=== PATIENT | male | born 1960 | race Caucasian/White ===

== ENCOUNTER 2019-11-11 11:55 | Outpatient (CLI) | payer OTHER, SELFPAY ==
--- NOTE | ~2019-11-11 | XR_ITS ---
XR chest 2V DATE: 11/11/2019 13:21 INDICATION: Preoperative testing. Ex-smoker. Severe osteoarthritis of left hip. TECHNIQUE: PA and lateral views COMPARISON: 08/18/2017 PA and lateral chest FINDINGS: Postoperative change including suture anchors at right humeral head and neck. Left glenohum eral arthroplasty. Status post lower anterior cervical spine surgical fusion. Degenerative spurring of the thoracic and lumbar spine. Normal heart size. No hilar or mediastinal enlargement. No pulmonary infiltrate or consolidation, pleural effusion or pulmonary vascular congestion or pneumo thorax. IMPRESSION: No active cardiopulmonary disease Reviewed, dictated and finalized at location B.
--- NOTE | 2019-11-11 12:55 | ECG_ITS ---
Measurements Intervals [place] Rate: 55 P: 66 OK: 143 QRS: -8 QRSD: 105 T: 50 QT: 404 QTc: 387 Interpretive Statements SINUS BRADYCARDIA WITH SINUS ARRHYTHMIA DELAYED PRECORDIAL R/S TRANSITION BASELINE ARTIFACT- I, II, AVR BORDERLINE ECG Electronically Signed On 11-11-2019 13:31:56 CDT by Daniel Encarnacion D.O.
[2019-11-11 13:26] LABS: Basophils Absolute Auto 0.1 K/mm3 (0.0-0.1); Basophils Percent Auto 0.7 % (0.2-1.2); Eosinophils Absolute Auto 0.2 K/mm3 (0-0.3); Eosinophils Percent Auto 2.7 % (0-4.4); Hematocrit 44.2 % (42.0-52.0); Hemoglobin 14.5 g/dL (14.0-18.0); Immature Granulocyte Absolute 0.03 K/mm3 (0.00-0.031); Immature Granulocyte Percent A 0.4 % (0-0.5); Lymphocytes Percent Auto 21.9 % (18.3-44.2); Mean Corpuscular HGB Conc 32.8 g/dl (32-36); Mean Corpuscular Volume 85.3 fl (80-100); Mean Platelet Volume 8.9 fl (7.4-10.4); Monocytes Absolute Auto 0.5 K/mm3 (0.1-0.6); Monocytes Percent Auto 6.1 % (2.6-8.5); Neutrophils Percent Auto 68.2 % (45.5-73.1); Platelet Count Result 276 k/mm3 (150-375); Red Blood Count 5.18 M/mm3 (4.6-6.20); Red Cell Distribution Width 13.1 % (11.5-14.5); White Blood Count 7.3 K/mm3 (4.5-10.0)
[2019-11-11 13:38] LABS: Albumin Level 4.5 g/dL (3.5-5.1); Blood Urea Nitrogen 25 mg/dL (9-20); Calcium 9.7 mg/dL (8.4-10.2); Carbon Dioxide 29 mmol/L (22-30); Chloride 103 mmol/L (98-107); Estimated Glomerular Filt Rate > 60; Glucose 89 mg/dL (75-110); Potassium 4.2 mmol/L (3.4-5.0); Sodium 141 mmol/L (137-145)
[2019-11-11 13:39] LABS: Urine Cotinine NEGATIVE
[2019-11-11 13:41] LABS: Hemoglobin A1C 5.7 % (<5.7)
== END 2019-11-11 11:56 | disposition home or self-care (01) ==
LOC: ANHSURGERY 12:00
PROVIDERS: PCP Family Medicine; Visit Provider Orthopaedic Surgery
DX: Z01.818 Encounter for other preprocedural examination (principal); M16.9 Osteoarthritis of hip, unspecified
CPT/HCPCS: 36415; 71046; 80048; 80307; 82040; 83036; 85025; 87070; 93005

== ENCOUNTER → 2019-12-02 11:39 | Outpatient (CLI) | payer OTHER, SELFPAY ==
--- NOTE | ~2019-12-02 | XR_ITS ---
EXAMINATION: XR_CERV2-3V_CR EXAM DATE: 12/02/2019 12:12 INDICATION: Cervical disc disorder. Myelopathy. TECHNIQUE: Cervical spine frontal, lateral, lateral swimmers, submental vertex odontoid projections. There is no prior study for comparison. FINDINGS: There is mild to moderate cervical levoscoliosis. There is cervical fusion C4-C6. There is moderate disc disease C6-7 and C7-T1. There is severe right, moderate left sided midcervical arthrop athy. There are shoulder replacement. The vertebral bodies are aligned in the AP dimension. The odont oid process is intact. The lateral masses of C1 line up with C2. Lung apices unremarkable. IMPRESSION: 1. Intact fusion C4-6. 2. Mild to moderate levoscoliosis. 3. Advanced right-sided, moderate left-sided arthropathy. Reviewed, dictated and finalized at location B.
== END ==
PROVIDERS: PCP Family Medicine
DX: M50.020 Cervical disc disorder with myelopathy, mid-cervical region, unspecified level (principal); M41.82 Other forms of scoliosis, cervical region; M12.88 Other specific arthropathies, not elsewhere classified, other specified site; Z98.1 Arthrodesis status
CPT/HCPCS: 72040

== ENCOUNTER 2020-01-12 11:58 | Outpatient (RCR) | payer OTHER, SELFPAY ==
[2020-01-12 12:19] LABS: Hematocrit 33.2 % (42.0-52.0); Hemoglobin 10.9 g/dL (14.0-18.0); Mean Corpuscular HGB Conc 32.8 g/dl (32-36); Mean Corpuscular Hemoglobin 28.5 pg (26-34); Mean Corpuscular Volume 86.7 fl (80-100); Mean Platelet Volume 8.5 fl (7.4-10.4); Platelet Count Result 322 k/mm3 (150-375); Red Blood Count 3.83 M/mm3 (4.6-6.20); Red Cell Distribution Width 12.7 % (11.5-14.5); White Blood Count 7.8 K/mm3 (4.5-10.0)
== END 2020-04-11 23:59 | disposition home or self-care (01) ==
LOC: ANHLAB 11:58
PROVIDERS: PCP Family Medicine; Visit Provider Orthopaedic Surgery
DX: D64.9 Anemia, unspecified (principal)
CPT/HCPCS: 36415; 85027

== ENCOUNTER 2020-02-17 10:26 | Outpatient (CLI) | payer OTHER, SELFPAY ==
--- NOTE | ~2020-02-17 | US_ITS ---
EXAMINATION: US thyroid DATE: 02/17/2020 11:03 INDICATION: Nontoxic multinodular goiter. TECHNIQUE: Multiple ultrasound images of the thyroid were obtained. COMPARISON: None. FINDINGS: The right thyroid lobe measures 4.0 x 1.9 x 1.6 cm. The left thyroid lobe measures 5.1 x 2.3 x 2.8 c m. There is a heterogeneous iso to slightly hypoechoic, solid wider than tall left thyroid mass with smooth margins measuring 4.1 x 2.1 x 2.2 cm (TI-RADS 4, moderately suspicious , FNA if >=1.5 cm, kimber ual followup is >1 cm). There is normal echotexture, echogenicity and vascular flow throughout the r emainder of the thyroid gland. IMPRESSION: 1. 4.1 cm right thyroid mass for which ultrasound-guided biopsy would be recommended. Reviewed, dictated and finalized at location A. IMPRESSION: 1. 4.1 cm right thyroid mass for which ultrasound-guided biopsy would be recomm ended.
--- NOTE | ~2020-02-17 | XR_ITS ---
EXAMINATION: XR foot LT min 3V DATE: 02/17/2020 11:08 INDICATION: Left foot pain, possible foreign body TECHNIQUE: Dorsoplantar, lateral, and 2 oblique views of the left foot were obtained. COMPARISON: None. FINDINGS: There is a triangular foreign body measuring 1.6 cm in greatest dimension which projects in the plantar soft tissues of the medial foot near the medial cuneiform. There is no fracture. Mild os teoarthritis is noted in multiple interphalangeal joints as well as in the midfoot. A plantar calcane al enthesophyte is noted. IMPRESSION: 1. Triangular radiopaque foreign body in the plantar soft tissues of the medial foot near the medial cuneiform. Reviewed, dictated and finalized at location A.
== END 2020-02-17 10:27 | disposition home or self-care (01) ==
PROVIDERS: PCP Family Medicine; Referring Provider Nurse Practitioner Family; Visit Provider Physician Assistant Medical
DX: M79.5 Residual foreign body in soft tissue (principal); E04.2 Nontoxic multinodular goiter
CPT/HCPCS: 73630; 76536

== ENCOUNTER 2020-03-02 07:38 | Outpatient (CLI) | payer OTHER, SELFPAY ==
[2020-03-02 18:37] LABS: SARS-CoV-2 RNA PCR Negative
== END 2020-03-02 07:39 | disposition home or self-care (01) ==
LOC: ANHCOVIDDT 07:38
PROVIDERS: PCP Family Medicine; Visit Provider Podiatrist Foot & Ankle Surgery
DX: Z01.812 Encounter for preprocedural laboratory examination (principal); Z11.59 Encounter for screening for other viral diseases
CPT/HCPCS: 87635; C9803; U0003

== ENCOUNTER 2020-03-03 02:35 | Day surgery (SDC) | payer OTHER, SELFPAY ==
[2020-03-02 08:53] VITALS: BMI 27.3
[2020-03-03] VITALS (7 sets, daily range): BP systolic 124–164; BP diastolic 69–99; PULSE 50–84; RESP 11–18; TEMP 35.8–36.3; O2SAT 99–100
--- NOTE | ~2020-03-03 | XR_ITS ---
EXAMINATION: XR surgery orthopedic DATE: 03/03/2020 10:35 INDICATION: Foreign body removal from the left foot TECHNIQUE: 2 oblique fluoroscopic images of the left midfoot were obtained prior to and following rem oval of a reported shard of glass by Dr. Fowler. Radiologist was not present for the imaging or pro cedure. The amount of fluoroscopy time used during this procedure was 3.8 minutes. COMPARISON: 02/17/2020 FINDINGS: Initial image demonstrates the tip of a metallic probe in relatively close proximity to the previousl y seen triangular foreign body consistent with a shard of glass located in the soft tissues plantar/m edial to the medial cuneiform. The foreign body is no longer visualized on the post procedure image. IMPRESSION: 1. No residual radiopaque foreign body post removal of a reported glass fragment from the left midfoo t. See procedure note for further detail. Reviewed, dictated and finalized at location A. IMPRESSION: 1. No residual radiopaque foreign body post removal of a reported glass fragmen t from the left midfoot. See procedure note for further detail.
--- NOTE | 2020-03-03 07:20 | WPDHPUPDATE1 ---
History and Physical Update Update Date/Time: 03/03/20 07:20 History and Physical has been reviewed, including an updated exam of the patient. There are NO changes in the patient's condition. Risks, benefits, and alternatives have been discussed and questions answered. Patient agrees to proceed with procedure.
[2020-03-03] MEDS: LACTATED RINGERS 1,000 ML 30 ML IV CONT (08:15)
--- NOTE | 2020-03-03 08:50 | WPDANESEPPF ---
Anes - Initial Pre Proc Eval Procedure: Operation Date: 03/03/20 09:30 Proposed Procedures p Removal Foreign Body Of Left Foot - Juan Fowler JR, MD Date/Time: 03/03/20 08:50 Surgeon: Juan Fowler JR, MD Pre Op Diagnosis: Painful Foreign Body Left Foot Patient Data Age: 60 Gender: M Height: 5 ft 9 in Weight: 84.1 kg Last Vital Signs Temp 35.8 C L 03/03/20 08:15 Pulse 58 L 03/03/20 08:15 Resp 18 03/03/20 08:15 BP 140/83 03/03/20 08:15 Pulse Ox 99 03/03/20 08:15 Allergies Allergy/AdvReac Type Severity Reaction Status Date / Time atorvastatin AdvReac MUSCLE Verified 03/03/20 08:07 CRAMPS Home Medications Medication Instructions Recorded Confirmed Type ascorbic acid (vitamin C) [Vitamin 1 g PO DAILY 11/11/19 03/03/20 History C] aspirin 81 mg PO DAILY 11/11/19 03/03/20 History omega 9-jao-mvr-fish oil [Fish Oil] 1 cap PO DAILY 11/11/19 03/03/20 History meloxicam 15 mg tablet 15 mg PO DAILY #90 tablet 02/18/20 03/03/20 Rx cetirizine 10 mg PO DAILY 03/02/20 03/03/20 History tizanidine 4 mg PO QPM 03/02/20 03/03/20 History Patient hx anesthesia problems: none Family hx anesthesia problems: none PMFSH Past Medical History Medical History Hip osteoarthritis Screening for prostate cancer Surgical History Surgical History H/O arthroscopy of shoulder History of fusion of cervical spine History of total hip replacement Family History Family History Grandparent Cerebrovascular accident Sibling Family history of diabetes mellitus in first degree relative Social History Social History Smoking packs per day: 3 Smoking cigarettes per day: 60.0 Years smoked: 12 Smoking pack-years: 36.00 Smoking status: Former smoker Tobacco type: cigarettes Additional smoking assessment comments: QUIT 1988 Alcohol intake: former Alcohol use details: HISTORY ALCOHOL ABUSE Substance use: former Other substance usage details: STATES USED EVERYTHING Last use: 25 YEARS AGO Gender identity (if verbalized by the patient): Male Spiritual care concerns: No Anes - Eval Final PreProcedure Day of Procedure 03/03/20 08:50 Patient weight: overweight Heart: regular rate and rhythm Lungs: clear to auscultation Airway: Mallampati scale class II Neurological: alert and oriented Last oral intake: >/= 8 hours ASA classification: III Emergent: no Anesthetic plan: proceed Anesthesia type and monitoring: general LMA and standard monitoring Informed Consent: The patient's anesthetic plan and its attendant risks and benefits were discussed with the patient/family/POA. Questions were solicited and answers provided to the satisfaction of the patient/family/POA.
[2020-03-03] MEDS: ceFAZolin 2 GM/D5W 50 ML 2 GM/50 ML BAG IVPB (09:24)
--- NOTE | 2020-03-03 11:02 | PM.OP ---
Procedure Note - Brief Procedure Note - Brief Date of procedure: 03/03/20 Pre-op diagnosis: Painful Foreign Body Left Foot Post-op diagnosis: same Procedure performed: Removal of deep foreign body left foot Anesthesia: GLMA Surgeon: Juan Fowler JR, DPM Estimated blood loss (mL): 1 Complications: No immediate complications Condition: stable Disposition: same day
--- NOTE | 2020-03-03 17:57 | OP_ITS ---
DATE OF PROCEDURE: 03/03/2020 PREOPERATIVE DIAGNOSIS: Painful deep foreign body, left foot. POSTOPERATIVE DIAGNOSIS: Painful deep foreign body, left foot. PROCEDURE: Removal of deep foreign body, left foot. PATHOLOGY: None. ANESTHESIA: MAC with local. HEMOSTASIS: Pneumatic ankle tourniquet at 250 mmHg. ESTIMATED BLOOD LOSS: Minimal. MATERIALS USED: 4-0 Vicryl and 4-0 Monocryl. INJECTABLES: 20 mL of a 1:1 mixture of 2% lidocaine plain and 0.5% Marcaine plain injected preoperatively. COMPLICATIONS: None. PROCEDURE IN DETAIL: Under mild sedation, the patient was brought into the operating room and placed on the operating table in supine position. Pneumatic ankle tourniquet was placed about the patient's left ankle. Following IV anesthesia, local anesthesia was obtained about the left foot utilizing a total of 20 mL of 1:1 mixture of 2% lidocaine plain and 0.5% Marcaine plain. The foot was then scrubbed, prepped, and draped in the usual aseptic manner. An Esmarch bandage was then used to exsanguinate the patient's left foot and the pneumatic ankle tourniquet was then inflated. Surgery began in the following manner. Attention was directed to the plantar medial aspect of the left midfoot near the navicular cuneiform joint. The incision was continued deep down through the subcutaneous tissues using sharp and blunt dissection. The incision was approximately 4 cm in length. At this point, the muscle belly to the abductor hallucis and flexor digitorum brevis muscle belly were identified and dissected plantarly. At this point, utilizing live fluoroscopy, the large segment of glass was visualized and careful dissection of the muscle belly was performed and retracted inferiorly exposing the large glass foreign body. This was removed in toto utilizing a curved Mosquito hemostat. It was placed on the back table and noted to measure, one of the legs was 1.5 cm. The 2nd leg was approximately 8 mm. It was triangular-shaped. A fluoroscopic x-ray was taken of the left foot showing adequate removal of the entire foreign body. The wound site was flushed with copious amounts of sterile saline. The subcutaneous structures were reapproximated and coapted utilizing 4-0 Vicryl. Next the skin was reapproximated and coapted utilizing 4-0 Monocryl, utilizing running subcuticular suture fashion technique. Upon completion of the procedure, the incision was dressed with Adaptic, 4x4s, Kerlix, and Coban. The pneumatic ankle tourniquet was then deflated and a prompt hyperemic response noted to all digits of the left foot. The patient did very well with the procedure and anesthesia. He was transferred to the recovery room with vital signs stable and vascular status intact to all toes of the left foot. Following a period of postoperative monitoring, the patient will be discharged home on the following written and oral postoperative instructions: 1. Keep the dressing clean, dry, and intact. 2. Avoid excessive ambulation. 3. Ice and elevate the left foot when at rest. 4. Wear surgical shoe at all times with ambulating. 5. Contact Dr. Fowler for all postop care and if any problems arise. 6. Prescriptions were written for Percocet 5/325, dispensed 30 to be taken 1 p.o. q.4-6 hours as needed for severe pain, Duricef 1000 mg was also prescribed to be taken 1 p.o. q.24 hours for 10 days to prevent infection. Miguel Angel I MT: Paz
== END 2020-03-03 12:15 | disposition home or self-care (01) ==
PROVIDERS: PCP Family Medicine; Visit Provider Podiatrist Foot & Ankle Surgery
PROC: (CPT 28192; principal; 2020-03-03 09:30)
DX: M79.5 Residual foreign body in soft tissue (principal); M79.672 Pain in left foot; Z87.891 Personal history of nicotine dependence; Z79.82 Long term (current) use of aspirin
CPT/HCPCS: 28192; J0690; J2250; J2405; J2704; J3010; J7120

== ENCOUNTER 2020-03-08 12:58 | Outpatient (CLI) | payer OTHER, SELFPAY ==
--- NOTE | ~2020-03-08 | US_ITS ---
EXAMINATION: US FNA w image guidance DATE: 03/08/2020 14:02 INDICATION: Left thyroid nodule TECHNIQUE: A time-out was performed to verify the patient's name, date of , and procedure to be performed . The procedure and its benefits and risks were discussed with the patient. Risks specifically discus sed included bleeding and infection. The patient understood the risks and agreed to proceed. The neck was prepped and draped in the usual sterile manner. 3 mL 1% lidocaine was used for local anesthesia . 6 passes were made with a 25G needle into the lesion. Appropriate needle location was documented with continuous sonographic guidance. The specimens were passed to the special procedure technologist in the room. A sterile bandage was applied. There were no immediate complications. FINDINGS: Grayscale ultrasound images demonstrate biopsy needles advanced into a 3.8 x 2.9 x 1.6 cm heterogeneo us solid hypoechoic mass with microcalcifications in the left thyroid lobe. IMPRESSION: 1. Successful ultrasound-guided fine needle aspiration of . Reviewed, dictated and finalized at location A.
== END 2020-03-08 12:59 | disposition home or self-care (01) ==
PROVIDERS: PCP Family Medicine; Visit Provider Physician Assistant Medical
DX: E07.9 Disorder of thyroid, unspecified (principal)
CPT/HCPCS: 10005; 88173; 88305

== ENCOUNTER 2020-09-25 07:31 | Outpatient (CLI) | payer OTHER, SELFPAY ==
--- NOTE | ~2020-09-25 | US_ITS ---
US abdomen complete DATE: 09/25/2020 08:11 INDICATION: Right lower quadrant abdominal pain, flank pain TECHNIQUE: Real-time imaging of the abdomen, Doppler analysis COMPARISON: None FINDINGS: Hepatic steatosis. Hepatomegaly. There is normal hepatopedal portal venous flow direction. No hepatic or pancreatic space-occupying mass lesion is evident. No gallstones are evident. Gallbladder wall thickness is within upper limits of normal. Negative sono graphic Robin's sign. The common bile duct measures 3.7 mm, normal. Right kidney measures approximately 10 cm length. The left kidney measures similar length. No space-o ccupying mass lesion or hydronephrosis of either kidney is evident. Spleen measures up to 11.7 cm, within upper normal range. Normal caliber of the abdominal aorta. The inferior vena cava is unremarkable. IMPRESSION: Hepatomegaly and hepatic steatosis Reviewed, dictated and finalized at Location A. Reviewed, dictated and finalized at location A. IER COURTESY BOOTH
== END 2020-09-25 07:32 | disposition home or self-care (01) ==
PROVIDERS: Family Provider Family Medicine; PCP Family Medicine; Visit Provider Nurse Practitioner Family
DX: R10.31 Right lower quadrant pain (principal); K76.0 Fatty (change of) liver, not elsewhere classified
CPT/HCPCS: 76700

== ENCOUNTER 2020-10-25 08:05 | Outpatient (CLI) | payer OTHER, SELFPAY ==
--- NOTE | ~2020-10-25 | XR_ITS ---
EXAMINATION: XR foot RT min 3V EXAM DATE: 10/25/2020 08:20 INDICATION: No known recent injury provided at this time. Pain of the right foot. TECHNIQUE: Right foot dorsoplantar, lateral and oblique projections obtained and reviewed. Compariso n is made to prior examination from contralateral foot 02/17/2020. FINDINGS: Right metatarsal bones unremarkable. There is severe osteoarthritis at the Lisfranc joint , 2nd and 3rd tarsometatarsal articulations, could be primary osteoarthritis or secondary posttraumat ic osteoarthritis. There is mild right 1st metatarsophalangeal and interphalangeal primary osteoarthr itis. Some lateral subluxation at the 1st interphalangeal joint. There are no bony erosions identified. No periosteal reaction or band of sclerosis to suggest subacute stress fracture. There are no acute frac tures or dislocations identified. There is no subcutaneous gas. The soft tissue is unremarkable. There are no radiopaque foreign bodies. Small inferior calcaneal spur IMPRESSION: 1. Severe right 2nd, 3rd tarsometatarsal joint osteoarthritis. 2. Otherwise mild degenerative changes. Reviewed, dictated and finalized at location A. [employer] WORK[employer]
== END 2020-10-25 08:06 | disposition home or self-care (01) ==
LOC: ANHIMG 08:10
PROVIDERS: PCP Family Medicine; Visit Provider Nurse Practitioner Family
DX: G89.29 Other chronic pain (principal); M79.671 Pain in right foot; M19.071 Primary osteoarthritis, right ankle and foot
CPT/HCPCS: 73630

== ENCOUNTER 2022-01-16 05:11 | Emergency (ER) | payer OTHER, SELFPAY ==
[2022-01-16] VITALS (9 sets, daily range): BP systolic 165–182; BP diastolic 83–85; PULSE 71–144; RESP 16–20; TEMP 35.8; O2SAT 91–100
--- NOTE | ~2022-01-16 | CT_ITS ---
EXAMINATION: CT abdomen pelvis w con DATE: 01/16/2022 06:14 INDICATION: Right lower quadrant abdominal pain. TECHNIQUE: Computed tomography (CT) of the abdomen and pelvis was performed with 75 mL Omnipaque 300 intravenous contrast. Automated exposure control and iterative reconstruction technique were employed . The dose-length product was 767.87 mGy-cm. COMPARISON: None. FINDINGS: The visualized portions of the lung bases demonstrate mild atelectasis. Calcified left lung nodules are consistent with old granulomatous disease. No pleural effusion. The heart size is normal . No pericardial effusion. There is a small sliding hiatal hernia. Calcifications in the liver and sp sheryl are consistent with old granulomatous disease. The gallbladder, pancreas, adrenal glands, and le ft kidney are normal. There is a delayed right-sided contrast nephrogram. There is mild right hydrone phrosis and proximal hydroureter. There is a 4 mm stone in proximal right ureter. There is diverticul osis of the colon without evidence of diverticulitis. There are no dilated loops of bowel. The append ix is normal. There are no pathologically enlarged lymph nodes. There is no free intraperitoneal flui d. There is a total left hip arthroplasty. There is severe lower lumbar spondylosis. IMPRESSION: 1. 4 mm stone in proximal right ureter with mild right hydronephrosis and proximal hydroureter. 2. Small sliding hiatal hernia. Reviewed, dictated and finalized at location A. IMPRESSION: 1. 4 mm stone in proximal right ureter with mild right hydronephrosis and proxi mal hydroureter. 2. Small sliding hiatal hernia.
[2022-01-16] MEDS: SODIUM CHLORIDE 0.9% IV 1,000 ML 999 ML IV CONT (05:34)
[2022-01-16 05:42] LABS: Basophils Absolute Auto 0.1 K/mm3 (0.0-0.1); Basophils Percent Auto 0.6 % (0.2-1.2); Eosinophils Absolute Auto 0.1 K/mm3 (0-0.3); Eosinophils Percent Auto 1.1 % (0-4.4); Hematocrit 47.5 % (42.0-52.0); Hemoglobin 15.5 g/dL (14.0-18.0); Immature Granulocyte Absolute 0.09 K/mm3 (0.00-0.031); Immature Granulocyte Percent A 0.8 % (0-0.5); Lymphocytes Absolute Auto 2.02 K/mm3 (0.9-3.2); Lymphocytes Percent Auto 17.5 % (18.3-44.2); Mean Corpuscular HGB Conc 32.6 g/dl (32-36); Mean Corpuscular Hemoglobin 28.8 pg (26-34); Mean Corpuscular Volume 88.3 fl (80-100); Mean Platelet Volume 8.8 fl (7.4-10.4); Monocytes Absolute Auto 0.8 K/mm3 (0.1-0.6); Monocytes Percent Auto 6.5 % (2.6-8.5); Neutrophils Absolute Auto 8.5 K/mm3 (1.3-6.7); Neutrophils Percent Auto 73.5 % (45.5-73.1); Platelet Count Result 216 k/mm3 (150-375); Red Blood Count 5.38 M/mm3 (4.6-6.20); Red Cell Distribution Width 13.1 % (11.5-14.5); White Blood Count 11.5 K/mm3 (4.5-10.0)
--- NOTE | 2022-01-16 05:44 | ED.ABDPAIN ---
HPI - Abdominal Pain General Chief Complaint: Abdominal Pain Stated Complaint: right flank pain Time Seen by Provider: 01/16/22 05:36 History of Present Illness HPI narrative: Patient is a 62-year-old male complaining of right flank pain, 9 out of 10, sharp, nonradiating accompanied by nausea started this morning. Patient denies any chest pain, shortness of breath, abdominal pain, vomiting, diarrhea, urinary symptoms, fever or chills. Related Data Home Medications Medication Instructions Recorded Confirmed ascorbic acid (vitamin C) 1,000 mg 1 g PO DAILY 11/11/19 03/19/21 tablet (Vitamin C) aspirin 81 mg chewable tablet 81 mg PO DAILY 11/11/19 03/19/21 omega 3-ryl-vpq-fish oil 1,000 mg 1 cap PO DAILY 11/11/19 03/19/21 (120 mg-180 mg) capsule (Fish Oil) Allergies Allergy/AdvReac Type Severity Reaction Status Date / Time atorvastatin AdvReac MUSCLE Verified 01/16/22 05:16 CRAMPS Review of Systems Review of Systems: All systems reviewed & are unremarkable except as noted in HPI and below Constitutional: Constitutional: Denies body ache(s), Denies chills, Denies excessive sweating, Denies fatigue, Denies fever(s), Denies headache(s), Denies lethargy, Denies malaise, Denies weakness and Denies weight loss Eyes: Eyes: Denies blurry vision, Denies change in vision and Denies loss of vision ENT: Denies dizziness, Denies ear discharge, Denies headache(s), Denies lip swelling, Denies epistaxis, Denies nasal congestion, Denies neck pain, Denies throat swelling and Denies tongue swelling Cardiovascular: Cardiovascular: Denies chest pain, Denies chest pain at rest, Denies chest pain with activity, Denies diaphoresis, Denies rapid heart rate, Denies edema, Denies irregular heart rhythm, Denies lightheadedness, Denies palpitations, Denies dyspnea and Denies dyspnea on exertion Respiratory: Respiratory: Denies chest congestion, Denies cough, Denies hemoptysis, Denies dyspnea and Denies dyspnea on exertion Gastrointestinal: Gastrointestinal: Denies abdominal pain, Denies melena, Denies hematochezia, Denies diarrhea, Denies vomiting and Denies hematemesis Musculoskeletal: Musculoskeletal: Denies abnormal gait, Denies deformity, Denies joint swelling, Denies limited range of motion, Denies neck pain and Denies numbness Neurologic: Denies Abnormal speech present, Denies abnormal gait, Denies confusion, Denies dizziness, Denies headache(s), Denies focal weakness, Denies loss of vision, Denies numbness, Denies Other visual disturbances, Denies Sensory deficit (Neuro) and Denies weakness Psychiatric: Psychiatric: Denies confusion, Denies depression, Denies auditory hallucinations, Denies homicidal ideation and Denies suicidal ideation Endocrine: Endocrine: Denies cold intolerance, Denies excessive sweating, Denies fatigue, Denies heat intolerance and Denies palpitations Hematologic/Lymphatic: Hematologic/Lymphatic: Denies easy bleeding and Denies easy bruising Allergic/Immunologic: Allergic/Immunologic: Denies lip swelling, Denies throat swelling and Denies tongue swelling PMFSH Past Medical History Medical History BMI 26.0-26.9,adult BMI 27.0-27.9,adult COVID-19 Hip osteoarthritis Screening for prostate cancer Trigger finger of right hand Surgical History Surgical History H/O arthroscopy of shoulder History of fusion of cervical spine History of total hip replacement Family History Family History Grandparent Cerebrovascular accident Sibling Family history of diabetes mellitus in first degree relative Father No problems noted. Mother Cerebrovascular accident Social History Social History Smoking packs per day: 3 Smoking cigarettes per day: 60.0 Years smoked: 12
[2022-01-16 05:50] LABS: Alanine Aminotransferase 34 U/L (6-50); Albumin Level 4.7 g/dL (3.5-5.1); Alkaline Phosphatase 74 U/L (38-126); Anion Gap 11 mmol/L (8-16); Aspartate Amino Transferase 41 U/L (17-59); Blood Urea Nitrogen 24 mg/dL (9-20); Calcium 9.7 mg/dL (8.4-10.2); Carbon Dioxide 25 mmol/L (22-30); Chloride 105 mmol/L (98-107); Estimated CRCL calculation 63 ml/min; Estimated Glomerular Filt Rate > 60; Glucose 149 mg/dL (65-110); Lactic Acid Reflex 1.8 mmol/L (0.7-2.0); Lipase 196 U/L (23-300); Sodium 141 mmol/L (137-145)
[2022-01-16] MEDS: HYDROmorphone HCL INJ (*CRX) 1 MG/ML SYR 0.5 MG IV PUSH ×2 (05:50→06:56)
[2022-01-16] MEDS: PROMETHAZINE HCL 25 MG/ML AMPUL 12.5 MG IV PUSH (05:50)
--- NOTE | 2022-01-16 07:06 | PC.NURSE ---
REPORT TO BOBBY SKAGGS
[2022-01-16 07:15] LABS: Appearance Urine Clear (Clear); Bilirubin Urine Negative (Negative); Blood Urine Trace-lysed (Negative); Color Urine Yellow (Yellow); Glucose Urine UA Negative (Negative); Ketones Urine Negative (Negative); Leukocyte Esterase Ur Negative LEU/UL (Negative); Nitrate Urine Negative (Negative); Protein Urine Negative (Negative); Specific Grav Ur 1.025 (1.001-1.035); Urobilinogen Urine 0.2 mg/dL (<2.0)
[2022-01-16 07:20] LABS: Add Urine Microscopic? YES; Mucus Urine Rare /lpf; WBC Urine 0-3 /hpf
== END 2022-01-16 07:52 | disposition home or self-care (01) ==
PROVIDERS: Emergency Provider Emergency Medicine; PCP Family Medicine
DX: N13.2 Hydronephrosis with renal and ureteral calculous obstruction (principal); M16.10 Unilateral primary osteoarthritis, unspecified hip; Z86.16 Personal history of COVID-19; Z98.1 Arthrodesis status; Z96.649 Presence of unspecified artificial hip joint; Z87.891 Personal history of nicotine dependence; K44.9 Diaphragmatic hernia without obstruction or gangrene
CPT/HCPCS: 36415; 74177; 80053; 81001; 83605; 83690; 85025; 96361; 96374; 96375; 96376; 99284; J1170; J2550; J7030; Q9967

== ENCOUNTER → 2022-07-17 07:38 | Outpatient (CLI) | payer OTHER, SELFPAY ==
--- NOTE | ~2022-07-17 | MR_ITS ---
EXAMINATION: MR knee RT wo con DATE: 07/17/2022 08:18 INDICATION: Right knee pain TECHNIQUE: Magnetic resonance imaging (MRI) of the right knee was performed without intravenous contr ast. Sequences included coronal PD-weighted FSE, coronal PD-weighted FS FSE, sagittal T2-weighted FS E, sagittal PD-weighted FS FSE and axial PD weighted fat saturated FSE. COMPARISON: None. FINDINGS: Medial compartment: Complex tear of the body and posterior horn of the medial meniscus. No partial-thickness cartilage lo ss with chondral surface regularity along the posterior medial tibial plateau. Deep chondral fissurin g with underlying edema-like subarticular signal changes at the anterior weightbearing medial femoral condyle. Lateral compartment: Complex tear at the junction of the anterior horn and body of the lateral meniscus. Full/near full-th ickness chondral ulceration with underlying cortical irregularity with underlying subarticular cystli ke and edema-like signal change at the posterior half the lateral tibial plateau. Additional deep cho ndral ulceration and fissuring without degenerative subchondral changes along the anterior to central weightbearing lateral femoral condyle. Patellofemoral compartment: Deep chondral fissure with minimal subarticular edema-like signal change at the lateral side of the l ateral patellar facet and central aspect of the medial patellar facet. Deep chondral fissuring with u nderlying cortical irregularity and both cystlike and edema-like signal change at the caudal aspect o f the trochlear groove and medial trochlea. Ligaments and tendons: Thickening and increased signal of the distal anterior cruciate ligament which involves a shallower c ourse than Blumensaat line consistent with at least partial tear. Posterior cruciate ligament is norm al. The medial collateral ligament and fibular collateral ligament complex are normal. The extensor m echanism is normal. The visualized medial and lateral hamstring tendons as well as the iliotibial ban d are normal. Fluid: Small to moderate-sized right knee joint effusion. Large Morrison's cyst measuring 6.8 x 3.4 x 2.0 cm wi th smaller component measuring 5.4 x 3.0 x 0.9 cm remaining deep to the semimembranosus tendon. No lo ose osteochondral bodies identified. Osseous/other: Slight anterior subluxation of the tibia medial tibial plateau relative to the medial femoral condyle . No fracture or pathologic marrow replacing process. IMPRESSION: 1. Likely at least partial tear of the distal anterior cruciate ligament. 2. Complex tears of the medial and lateral menisci. 3. Tricompartmental osteoarthritis, moderate severity in the lateral compartment and mild in the medi al and patellofemoral compartments, each with regions of high-grade chondromalacia. 4. Small to moderate-sized right knee joint effusion and large Morrison's cyst. Reviewed, dictated and finalized at location A. VENEER TAPER IMPRESSION: 1. Likely at least partial tear of the distal anterior cruciate ligament. 2. Complex tears of the medial and lateral menisci. 3. Tricompartmental osteoarthritis, moderate severity in the lateral compartmen t and mild in the medial and patellofemoral compartments, each with regions of high-grade chondromalacia. 4. Small to moderate-sized right knee joint effusion and large Morrison's cyst.
== END ==
PROVIDERS: PCP Family Medicine; Visit Provider Orthopaedic Surgery
DX: S83.271A Complex tear of lateral meniscus, current injury, right knee, initial encounter (principal); S83.231A Complex tear of medial meniscus, current injury, right knee, initial encounter; M17.11 Unilateral primary osteoarthritis, right knee; M25.461 Effusion, right knee; M71.21 Synovial cyst of popliteal space [Baker], right knee
CPT/HCPCS: 73721

== ENCOUNTER 2022-12-03 10:17 | Outpatient (CLI) | payer OTHER, SELFPAY ==
[2022-12-03 10:36] LABS: Basophils Absolute Auto 0.1 K/mm3 (0.0-0.1); Basophils Percent Auto 1.1 % (0.2-1.2); Eosinophils Absolute Auto 0.2 K/mm3 (0-0.3); Eosinophils Percent Auto 2.9 % (0-4.4); Hematocrit 45.2 % (42.0-52.0); Hemoglobin 15.1 g/dL (14.0-18.0); Immature Granulocyte Absolute 0.03 K/mm3 (0.00-0.031); Immature Granulocyte Percent A 0.5 % (0-0.5); Lymphocytes Absolute Auto 1.71 K/mm3 (0.9-3.2); Lymphocytes Percent Auto 27.7 % (18.3-44.2); Mean Corpuscular HGB Conc 33.4 g/dl (32-36); Mean Corpuscular Hemoglobin 29.2 pg (26-34); Mean Corpuscular Volume 87.3 fl (80-100); Mean Platelet Volume 8.4 fl (7.4-10.4); Monocytes Absolute Auto 0.5 K/mm3 (0.1-0.6); Monocytes Percent Auto 8.3 % (2.6-8.5); Neutrophils Absolute Auto 3.7 K/mm3 (1.3-6.7); Neutrophils Percent Auto 59.5 % (45.5-73.1); Platelet Count Result 196 k/mm3 (150-375); Red Blood Count 5.18 M/mm3 (4.6-6.20); Red Cell Distribution Width 12.9 % (11.5-14.5); White Blood Count 6.2 K/mm3 (4.5-10.0)
[2022-12-03 10:49] LABS: Alanine Aminotransferase 47 U/L (6-50); Albumin Level 4.8 g/dL (3.5-5.1); Alkaline Phosphatase 58 U/L (38-126); Anion Gap 9 mmol/L (8-16); Aspartate Amino Transferase 39 U/L (17-59); Bilirubin,Total 1.3 mg/dL (0.2-1.3); Blood Urea Nitrogen 19 mg/dL (9-20); Calcium 8.8 mg/dL (8.4-10.2); Carbon Dioxide 27 mmol/L (22-30); Chloride 104 mmol/L (98-107); Estimated Glomerular Filt Rate > 60; Glucose 106 mg/dL (65-110); Sodium 140 mmol/L (137-145)
== END 2022-12-03 10:18 | disposition home or self-care (01) ==
PROVIDERS: PCP Family Medicine; Visit Provider Orthopaedic Surgery
DX: M17.11 Unilateral primary osteoarthritis, right knee (principal); Z79.1 Long term (current) use of non-steroidal anti-inflammatories (NSAID)
CPT/HCPCS: 36415; 80053; 85025

== ENCOUNTER 2023-06-13 08:40 | Outpatient (CLI) | payer OTHER, SELFPAY ==
--- NOTE | 2023-06-13 09:20 | ECG_ITS ---
Measurements Intervals [place] Rate: 58 P: 70 VA: 166 QRS: -34 QRSD: 113 T: 38 QT: 420 QTc: 413 Interpretive Statements SINUS BRADYCARDIA WITH MARKED SINUS ARRHYTHMIA MARKED LEFT AXIS DEVIATION [QRS AXIS < -30] MODERATE INTRAVENTRICULAR CONDUCTION DELAY [110+ ms QRS DURATION] COMPARED TO ECG 11/11/2019 13:25:36 LEFT-AXIS DEVIATION NOW PRESENT INTRAVENTRICULAR CONDUCTION DELAY NOW PRESENT Electronically Signed On 06-13-2023 13:35:11 CDT by Sheela Campuzano MD
[2023-06-13 09:46] LABS: Urine Cotinine NEGATIVE
[2023-06-13 09:47] LABS: Albumin Level 4.5 g/dL (3.5-5.1); Estimated Glomerular Filt Rate > 60; Glucose 103 mg/dL (65-110)
[2023-06-13 14:21] LABS: Hemoglobin A1C 5.5 % (<5.7)
== END 2023-06-13 08:41 | disposition home or self-care (01) ==
PROVIDERS: PCP Family Medicine; Visit Provider Orthopaedic Surgery
DX: M17.11 Unilateral primary osteoarthritis, right knee (principal); E78.2 Mixed hyperlipidemia; I10 Essential (primary) hypertension; R91.8 Other nonspecific abnormal finding of lung field; I45.9 Conduction disorder, unspecified
CPT/HCPCS: 80307; 82040; 82565; 82947; 83036; 93005

== ENCOUNTER 2023-08-20 11:52 | Outpatient (CLI) | payer OTHER, SELFPAY ==
[2023-08-20 13:18] LABS: Basophils Absolute Auto 0.1 K/mm3 (0.0-0.1); Basophils Percent Auto 1.3 % (0.2-1.2); Eosinophils Absolute Auto 0.2 K/mm3 (0-0.3); Eosinophils Percent Auto 3.9 % (0-4.4); Hematocrit 48.6 % (42.0-52.0); Immature Granulocyte Absolute 0.01 K/mm3 (0.00-0.031); Immature Granulocyte Percent A 0.2 % (0-0.5); Lymphocytes Absolute Auto 1.79 K/mm3 (0.9-3.2); Lymphocytes Percent Auto 29.3 % (18.3-44.2); Mean Corpuscular HGB Conc 32.9 g/dl (32-36); Mean Corpuscular Hemoglobin 28.8 pg (26-34); Mean Corpuscular Volume 87.6 fl (80-100); Mean Platelet Volume 8.4 fl (7.4-10.4); Monocytes Absolute Auto 0.4 K/mm3 (0.1-0.6); Monocytes Percent Auto 7.2 % (2.6-8.5); Neutrophils Absolute Auto 3.6 K/mm3 (1.3-6.7); Neutrophils Percent Auto 58.1 % (45.5-73.1); Platelet Count Result 187 k/mm3 (150-375); Red Blood Count 5.55 M/mm3 (4.6-6.20); Red Cell Distribution Width 12.6 % (11.5-14.5); White Blood Count 6.1 K/mm3 (4.5-10.0)
[2023-08-20 13:28] LABS: Urine Cotinine NEGATIVE
[2023-08-20 13:44] LABS: Albumin Level 4.7 g/dL (3.5-5.1); Estimated Glomerular Filt Rate > 60; Glucose 101 mg/dL (65-110)
== END 2023-08-20 11:53 | disposition home or self-care (01) ==
LOC: ANHSURGERY 11:56
PROVIDERS: PCP Family Medicine; Visit Provider Orthopaedic Surgery
DX: M17.11 Unilateral primary osteoarthritis, right knee (principal); Z01.818 Encounter for other preprocedural examination
CPT/HCPCS: 80307; 82040; 82565; 82947; 85025; 87081

== ENCOUNTER 2023-09-09 00:06 | Day surgery (SDC) | payer OTHER, SELFPAY ==
[2023-08-20 12:04] VITALS: BMI 27.3
--- NOTE | 2023-08-20 12:38 | PC.NURSE ---
Report to the Outpatient Waiting Room, entrance under the green pavilion located off [facility], at time __0600 on date __09/09/23 . Planned Procedure Time: ___729 . Time changes happen often and if your time is changed the preop area will call you the afternoon before. - You and your visitor will be asked to self-screen and do not enter if you have any COVID symptoms. - A mask is optional within the hospital at this time. Patients may have clear liquids (water, carbonated beverages, clear teas, apple juice) until 3 hours prior to surgery( 4:30 AM) with a maximum of 20 ounces. - No food from midnight until time of surgery - Infants may have breast milk until 4 hours before surgery, formula 6 hours prior to surgery. - Children will be allowed to drink immediately following surgery. If applicable, please bring a bottle or sippy cup to assist with drinking. Juice, water, soda, and popsicles are readily available. For infants on formula, please bring formula the day of surgery. Pacifiers are allowed. Take the following medications with a SIP of water the morning of surgery: __NONE DO NOT STOP ANY OF YOUR OTHER PRESCRIPTION MEDICATIONS PRIOR TO SURGERY ?EXCEPT THE FOLLOWING Medications to discontinue per physician ___PT STATES HOLD ALL VITAMINS AND SUPPLEMENTS, ASPIRIN AND DICLOFENAC 7 DAYS PRE OP PER DR CLAIRE . LAST DOSE 09/01/23 MAY TAKE TYLENOL IF NEEDED FOR PAIN Please no make-up, nail stateless, hairspray, perfume, deodorant, or body powder the day of surgery. No jewelry (including any body piercings) or valuables the day of surgery, leave them at home. Please take a shower or bath the night before, or the morning of, surgery with an antibacterial soap. Wear comfortable, loose fitting clothing. Children are encouraged to wear pajamas. - Jewelry must be removed prior to entering the operating room. Rings and piercings that are not removed may be cut off. - The hospital will not accept responsibility for valuables. - Please leave all valuables, including medications, at home the day of surgery. If you are going home after surgery, a licensed team otr truck driver must drive you home. - NO public transportation without another adult if you receive anesthesia. - We recommend that an adult stay with you for 24 hours following discharge. - We also recommend that you do not drive, make important decision, drink alcoholic beverages, or take any drugs that were not prescribed by your health care provider for at least 24 hours after your discharge time. For Pediatric surgeries, we recommend two adults accompany the child home. Follow any additional instructions given to you from your surgeon. If you or anyone in your household have experienced Covid symptoms in the past week, please notify your surgeon or the nurse liaison at the phone number below for possible testing. VERBAL AND WRITTEN instructions given to ___PATIENT AND DIANE and asked if any additional questions and then verbalized understanding. Patient advised to call surgeon office or pre surgery nurse liaison [phone] if any additional questions.
[2023-08-20 12:55] VITALS: BP 139/89; PULSE 59; RESP 18; TEMP 36.8; O2SAT 100
--- NOTE | 2023-09-08 15:31 | WPDANESEPPF ---
Anes - Initial Pre Proc Eval Procedure: Operation Date: 09/09/23 07:30 Proposed Procedures p Right Total Knee Arthroplasty - Kaleb Bhandari MD Date/Time: 09/08/23 15:31 Surgeon: Kaleb Bhandari MD Pre Op Diagnosis: primary oa right knee Patient Data Age: 63 Gender: M Height: 1.75 m Weight: 83.8 kg Last Vital Signs Temp 36.8 C 08/20/23 12:55 Pulse 59 L 08/20/23 12:55 Resp 18 08/20/23 12:55 BP 139/89 08/20/23 12:55 Pulse Ox 100 08/20/23 12:55 O2 Del Method Room Air 08/20/23 12:55 Allergies Allergy/AdvReac Type Severity Reaction Status Date / Time atorvastatin AdvReac Nausea AND Verified 09/09/23 06:19 DIARRHEA NSAIDS (Non-Steroidal AdvReac Nausea Verified 09/09/23 06:19 Anti-Inflamma Home Medications Medication Instructions Recorded Confirmed Type ascorbic acid (vitamin C) 1,000 mg 1 g PO DAILY 11/11/19 09/09/23 History tablet (Vitamin C) aspirin 81 mg chewable tablet 81 mg PO DAILY 11/11/19 09/09/23 History omega 3-pzo-xba-fish oil 1,000 mg 1 cap PO DAILY 11/11/19 09/09/23 History (120 mg-180 mg) capsule (Fish Oil) magnesium 250 mg tablet 250 mg PO DAILY 02/11/23 09/09/23 History cyclobenzaprine 10 mg tablet 10 mg PO QAM PRN muscle spasm 06/11/23 09/09/23 History melatonin 3 mg capsule 3 mg PO QHS PRN Insomnia 06/11/23 09/09/23 History misoprostol 100 mcg tablet 100 mcg PO DAILY #90 tabs 06/24/23 09/09/23 Rx tizanidine 4 mg tablet See Rx Instructions .Route 07/06/23 09/09/23 Rx .COMPLEX #30 tabs acetaminophen 500 mg capsule 1,000 mg PO Q6H PRN Pain 08/20/23 09/09/23 History cetirizine 10 mg capsule (Zyrtec) 10 mg PO DAILY PRN Allergy Symptoms 08/20/23 09/09/23 History catherine seed oil-omega 3-6-9 1,000 mg 1 cap PO DAILY 08/20/23 09/09/23 History (580 mg) capsule diclofenac sodium 50 mg 50 mg PO HS 08/20/23 09/09/23 History tablet,delayed release nut.tx.impaired digest fxn (MCT 1 packet PO DAILY 08/20/23 09/09/23 History Pro-Romain oral packet) tramadol 50 mg tablet 50 mg PO Q8H PRN pain #60 tabs 08/27/23 09/09/23 Rx Patient hx anesthesia problems: none Family hx anesthesia problems: none Results Review: All pre-operative results and documents have been reviewed as part of the pre-operative evaluation. [facility] Past Medical History Medical History (Updated 09/08/23 @ 15:32 by Pete Downs DO) BMI 26.0-26.9,adult BMI 27.0-27.9,adult COVID-19 GERD (gastroesophageal reflux disease) Hip osteoarthritis Osteoarthritis of right knee Screening for prostate cancer Trigger finger of right hand Surgical History Surgical History H/O arthroscopy of shoulder History of fusion of cervical spine History of total hip replacement Family History Family History Grandparent Cerebrovascular accident Sibling Family history of diabetes mellitus in first degree relative Father Mother Cerebrovascular accident Social History Social History Smoking packs per day: 3 Smoking cigarettes per day: 60.0 Years smoked: 12 Smoking pack-years: 36.00 Smoking status: Former smoker Tobacco type: cigarettes Second hand tobacco smoke exposure: Yes Smoking end date: 09/24/88 Additional smoking assessment comments: QUIT 1988 Alcohol intake: former Alcohol use details: HISTORY ALCOHOL ABUSE Substance use: former Substance use type: amphetamines Other substance usage details: STATES USED EVERYTHING Last use: 25 YEARS AGO Lack of Transportation: No Lack of Food: Never True Current Housing: I Have Housing Concerned About Future Housing: No Difficulty Paying Gas/Electric Bills: No Difficulty Paying for Meds: No Currently Unemployed: No Education: Associate Degree Difficulty w/ Childcare or Fami
[2023-09-09] VITALS (13 sets, daily range): BP systolic 131–171; BP diastolic 69–97; PULSE 64–107; RESP 10–20; TEMP 36.1–36.9; O2SAT 92–100
--- NOTE | ~2023-09-09 | XR_ITS ---
EXAMINATION: [id number] DATE: 09/09/2023 09:50 INDICATION: Postoperative evaluation following right total knee arthroplasty. TECHNIQUE: Anteroposterior and lateral views of the right knee were obtained. COMPARISON: 06/11/2023 FINDINGS: Right total knee arthroplasty with patellar resurfacing appears well seated and in near anatomic alig nment. No fractures identified. Expected postoperative subcutaneous and intra-articular gas. IMPRESSION: 1. Right total knee arthroplasty, negative for postoperative purposes. Reviewed, dictated and finalized at location A. ORATOR OPERATOR
[2023-09-09] MEDS: ACETAMINOPHEN 500 MG TABLET 1000 MG PO (06:28)
[2023-09-09] MEDS: LACTATED RINGERS 1,000 ML 30 ML IV CONT ×2 (06:45→09:39)
[2023-09-09] MEDS: TRANEXAMIC ACID 1,000MG/ISO100 1,000 MG/100 ML BAG 200 MG IVPB (07:04)
--- NOTE | 2023-09-09 07:24 | WPDHPUPDATE1 ---
History and Physical Update Update Date/Time: 09/09/23 07:24 History and Physical has been reviewed, including an updated exam of the patient. There are NO changes in the patient's condition. Risks, benefits, and alternatives have been discussed and questions answered. Patient agrees to proceed with procedure.
[2023-09-09] MEDS: ceFAZolin 2 GM/D5W 50 ML 2 GM/50 ML BAG IVPB (07:36)
--- NOTE | 2023-09-09 07:36 | WPDANESPNB ---
Anes - Peripheral Nerve Block Date/Time: 09/09/23 07:36 I have discussed with the patient/family/POA the placement of a peripheral nerve block for post-operative pain management, including associated risks, benefits, complications, and side effects. Alternative methods of post-operative analgesia were detailed. Questions were solicited and answers provided to the satisfaction of the patient/family/POA. Time-Out: A pre-procedural Time-Out was completed immediately before starting the procedure and confirmed: Patient Identification, Site, Procedure, Patient Position and the Availability of Requisite Equipment. Clinical Indications: Acute post-operative pain management requested by the operative surgeon. Nerve Block Insertion Note Anes-nerve block: adductor canal right Patient position: supine Skin prep: chlorhexidine Needle: 22 gauge, stimulating, insulated echogenic needle. Needle length: 80 mm Technique: ultrasound Injectate: bupivacaine 0.5% with epi 5 mcg/ml (30cc - no epi) Observations: tolerated well Complications: none Procedure start time:: 725 Procedure end time:: 729
--- NOTE | 2023-09-09 09:51 | W.PM.PROC2 ---
Procedure Note - Detailed Date of Procedure 09/09/23 Pre-op Diagnosis primary oa right knee Post-op Diagnosis Same Procedure Performed Total knee arthroplasty, right. Surgeon Kaleb Bhandari MD Anesthesia General and Regional (subsartorial block) Findings Excellent bone quality. Minimal lateral release of IT band required. Description of Procedure The patient was brought to the operating room. A general anesthetic was administered. The leg was prepped and draped in the usual sterile fashion. The limb was elevated and the tourniquet inflated to 300 mmHg during initial exposure, and cementation. A longitudinal incision was created along the medial border of the patella and patellar tendon, and a trivector approach to the knee was performed. No medial release was taken. The knee was then flexed. The osteophytes were carefully removed. The intramedullary guide was placed in the femoral canal. The distal femoral resection was then taken with the oscillating saw. The collateral ligaments were carefully protected. The tibia was carefully exposed. The jig was applied, and the proximal tibia was resected according to preoperative plan. The knee was balanced in extension. Appropriate releases were taken where needed. The anterior cruciate ligament and meniscal remnants were removed. The posterior cruciate ligament was preserved. The patella was measured. Patellar resection was carried out with the oscillating saw. The lug holes drilled. The femur was sized and rotation assessed using a combination of gap balancing, posterior referencing, and the AP axis. The 4 in 1 cutting block was used to finish the femoral cuts after equal gaps were assured. The osteophytes were carefully removed from the back of the knee. The knee was copiously irrigated with antibiotic solution periodically throughout the procedure. The meniscal remnants were removed. The spacer block was used to confirm equal flexion and extension gaps. Slight lateral release of the IT band insertion. The tibia was sized and broached. The bony surfaces were prepared for cementing with pulsatile lavage. The real tibia was cemented into position. The femur was press-fit. The patella was press-fit. Excess cement was carefully removed. Patellar tracking was carefully assessed. No additional releases were required. Copious irrigation then performed. The wound was closed with #1 Vicryl suture, #1, 3-0, and 4-0 barbed suture, followed by Steri-Strips. A sterile bulky dressing was applied. Meticulous hemostasis was maintained throughout the procedure, and the bipolar cautery device was used. The pain relieving mixture was injected into the periarticular tissues during the procedure. There were no complications. The patient was extubated and brought to the recovery room in stable condition after the application of sterile dressing with Ricardo bandage. Implants Laxmi Triathlon knee system, low profile cemented tibia size 6, press-fit cruciate retaining femoral component size 6 ,and a 9 mm cruciate retaining polyethylene insert. 38 mm asymmetric metal backed tritanium patella component. Estimated Blood Loss 100 Drains No Pathology None sent Complications No immediate complications Condition Stable Disposition PACU [facility] Billing Surgery - Charge Forward: Surgery Billing
[2023-09-09] MEDS: GENTAMICIN BONE CEMENT REFOBACIN 1 EACH TOPICAL (10:41)
[2023-09-09] MEDS: fentaNYL CITRATE INJ (*CRX) 100 MCG/2 ML VIAL 25 MCG IV PUSH ×3 (10:46→10:55)
--- NOTE | 2023-09-09 11:04 | SUR.PHASEI ---
1035-Floor room not ready, report given to RN and will call us when room cleaned.
--- NOTE | 2023-09-09 11:35 | ADMGEN ---
This patient, Johnathan Putnam, was admitted to 3 [facility] Surg Room 312-01. Patient/family oriented to hospital policies and general routines including ID bracelet, bed and alarms, visiting hours, pain management, procedures, bathroom and other care routines, personal items, smoking policy, room service/diet, and visiting hours. Information on how to activate the Rapid Response Team has been discussed. Patient/Family are encouraged to report perceived risks to care and to ask questions if they do not understand what they are told or what they should do. report received from SHARIFA Dykes
[2023-09-09] MEDS: oxyCODONE HCL (*CRX) 5 MG TAB IR PO ×2 (14:01→16:21)
[2023-09-09] MEDS: ceFAZolin 1 GM/NS 50 ML 1 GM/50 ML BAG IVPB (16:18)
[2023-09-09] MEDS: CYCLOBENZAPRINE HCL 10 MG TABLET PO (16:20)
[2023-09-09] MEDS: ASPIRIN 81 MG ENTERIC TABLET PO (16:20)
[2023-09-09] MEDS: SENNA/DOCUSATE SODIUM TABLET 2 TAB PO (16:21)
--- NOTE | 2023-09-09 17:26 | PM.DS ---
DS: Admitting Diagnosis Discharge Date 09/10/23 Admitting Diagnosis Right knee degenerative arthritis. DS: Discharge Diagnosis Discharge Diagnosis Plan Right total knee arthroplasty. DS: Summary Hospital Course Reason for hospitalization: Total knee arthroplasty. Hospital Course: Tolerated surgery well. Progressed appropriately with therapy. Status at Discharge Functional status at discharge: uses cane/walker Overall status at discharge: patient is progressing back to baseline Time Spent with Patient Time attestation: Total time spent providing and/or coordinating discharge services: Exam Const: General: no acute distress Resp: Effort & Inspection: normal respiratory effort Skin: Other: Wound healing well. Mepilex dressing intact. No hematoma or drainage. Neuro: Motor exam (neuro): 5/5 motor strength present throughout Sensory Exam: normal sensation Psych: Mental Status: mental status grossly normal Speech and movement: Normal speech and movement present DS: Data Data Completed and Pending Labs on day of discharge: Labs from last 24 hours 09/09/23 06:29 Blood Type B Positive Antibody Screen Negative Discharge Plan Discharge Patient Disposition: Home, Self-Care Discharge Instructions: See instruction sheet. Stand Alone Forms: General Discharge Instructions Follow-up/Referrals: Kaleb Bhandari MD [Physician] - Discharge Medications: New oxycodone-acetaminophen 5-325 mg tablet 1 - 2 tablet PO Q6H MDD 6 tablets PRN (Reason: pain) Qty: 30 0RF prednisone 5 mg tablet 5 mg PO DAILY Qty: 10 0RF Continued magnesium 250 mg tablet 250 mg PO DAILY melatonin 3 mg capsule 3 mg PO QHS PRN (Reason: Insomnia) cyclobenzaprine 10 mg tablet 10 mg PO QAM PRN (Reason: muscle spasm) Rx Instructions: use with caution due to possible drowsiness, do not operate heavy machinery or drive while taking catherine seed oil-omega 3-6-9 1,000 mg (580 mg) capsule 1 cap PO DAILY MCT Pro-Romain Packet 1 packet PO DAILY ascorbic acid (vitamin C) [Vitamin C] 1,000 mg Tablet 1 g PO DAILY aspirin 81 mg Tablet,Chewable 81 mg PO DAILY omega 0-qst-aqj-fish oil [Fish Oil] 1,000 mg (120 mg-180 mg) Capsule 1 cap PO DAILY diclofenac sodium 50 mg tablet,delayed release (DR/EC) 50 mg PO HS Patient Comments: TAKES WITH MISOPROSTAL TO HELP WITH ADVERSE REACTION Zyrtec 10 mg Capsule 10 mg PO DAILY PRN (Reason: Allergy Symptoms) acetaminophen 500 mg Capsule 1,000 mg PO Q6H PRN (Reason: Pain) misoprostol 100 mcg tablet 100 mcg PO DAILY Qty: 90 3RF tizanidine 4 mg tablet See Rx Instructions .ROUTE .COMPLEX Qty: 30 1RF Dose Instruction: TAKE 1 TABLET BY MOUTH EVERY EVENING Rx Instructions: TAKE 1 TABLET BY MOUTH EVERY EVENING tramadol 50 mg tablet 50 mg PO Q8H PRN (Reason: pain) Qty: 60 0RF Quality VTE Prophylaxis VTE prophylaxis: mechanical ordered (KIP ontiveros and Ronnie)
[2023-09-09] MEDS: oxyCODONE HCL (*CRX) 5 MG TAB IR 10 MG PO (20:46)
[2023-09-09] MEDS: FAMOTIDINE 20 MG TABLET PO (20:46)
[2023-09-09] MEDS: diphenhydrAMINE HCl INJ 50 MG/ML VIAL 25 MG IV PUSH (21:30)
[2023-09-10] MEDS: KETOROLAC 15 MG/ML VIAL (*BKC) IV PUSH ×3 (00:47→11:03)
[2023-09-10] MEDS: ceFAZolin 1 GM/NS 50 ML 1 GM/50 ML BAG IVPB ×2 (00:47→08:51)
[2023-09-10 03:21] VITALS: BP 108/67; PULSE 88; RESP 19; TEMP 37; O2SAT 96
[2023-09-10] MEDS: oxyCODONE HCL (*CRX) 5 MG TAB IR 10 MG PO (03:29)
[2023-09-10] MEDS: CYCLOBENZAPRINE HCL 10 MG TABLET PO (03:29)
[2023-09-10 06:12] LABS: Basophils Percent Auto 0.1 % (0.2-1.2); Hematocrit 43.3 % (42.0-52.0); Hemoglobin 13.9 g/dL (14.0-18.0); Immature Granulocyte Absolute 0.04 K/mm3 (0.00-0.031); Immature Granulocyte Percent A 0.3 % (0-0.5); Lymphocytes Absolute Auto 1.76 K/mm3 (0.9-3.2); Lymphocytes Percent Auto 12.9 % (18.3-44.2); Mean Corpuscular HGB Conc 32.1 g/dl (32-36); Mean Corpuscular Hemoglobin 28.5 pg (26-34); Mean Corpuscular Volume 88.7 fl (80-100); Mean Platelet Volume 8.5 fl (7.4-10.4); Monocytes Absolute Auto 1.1 K/mm3 (0.1-0.6); Monocytes Percent Auto 8.2 % (2.6-8.5); Neutrophils Absolute Auto 10.7 K/mm3 (1.3-6.7); Neutrophils Percent Auto 78.5 % (45.5-73.1); Platelet Count Result 244 k/mm3 (150-375); Red Blood Count 4.88 M/mm3 (4.6-6.20); Red Cell Distribution Width 12.6 % (11.5-14.5); White Blood Count 13.7 K/mm3 (4.5-10.0)
[2023-09-10 06:26] LABS: Anion Gap 6 mmol/L (8-16); Blood Urea Nitrogen 16 mg/dL (9-20); Carbon Dioxide 31 mmol/L (22-30); Chloride 100 mmol/L (98-107); Estimated CRCL calculation 60 ml/min; Estimated Glomerular Filt Rate > 60; Glucose 114 mg/dL (65-110); Potassium 4.2 mmol/L (3.4-5.0); Sodium 137 mmol/L (137-145)
--- NOTE | 2023-09-10 08:06 | P.PNAN_ITS ---
Anes - Prog Note Post-Op Date/Time: 09/10/23 08:06 Cardiovascular status: normal Respiratory status: normal Airway patency: baseline Mental status: baseline Post-Op hydration status: normal Vital Signs: Last Vital Signs Temp 37.0 C 09/10/23 03:21 Pulse 88 09/10/23 03:21 Resp 19 09/10/23 03:21 BP 108/67 09/10/23 03:21 Pulse Ox 96 09/10/23 03:21 O2 Del Method Room Air 09/09/23 13:35 O2 Flow Rate 6 09/09/23 10:05 Pain Score (VAS): 11/01 I/O: Intake & Output 09/09/23 09/10/23 09/10/23 23:59 07:59 15:59 Intake Total 290 Balance 290 Laboratory Tests 09/10/23 05:56 09/10/23 05:56 09/09/23 09/10/23 06:29 05:56 WBC 13.7 H RBC 4.88 Hgb 13.9 L Hct 43.3 MCV 88.7 MCH 28.5 MCHC 32.1 RDW 12.6 Plt Count 244 MPV 8.5 Immature Gran % (Auto) 0.3 Neut % (Auto) 78.5 H Lymph % (Auto) 12.9 L Wells % (Auto) 8.2 Eos % (Auto) 0.0 Baso % (Auto) 0.1 L Lymph # (Auto) 1.76 Wells # (Auto) 1.1 H Eos # (Auto) 0.0 Baso # (Auto) 0.0 Abs Immat Gran (auto) 0.04 H Absolute Neuts (auto) 10.7 H Absolute Nucleated RBC 0.0 Nucleated RBC % 0.0 Sodium 137 Potassium 4.2 Chloride 100 Carbon Dioxide 31 H Anion Gap 6 L BUN 16 Creatinine 1.10 Estim Creat Clear Calc 60 Estimated GFR > 60 Glucose 114 H Calcium 9.0 Antibody Screen Negative Post-procedural complaints: none Patient Feedback: Patient satisfied with anesthetic care.
[2023-09-10] MEDS: ASPIRIN 81 MG ENTERIC TABLET PO (08:51)
[2023-09-10] MEDS: SENNA/DOCUSATE SODIUM TABLET 2 TAB PO (08:51)
[2023-09-10] MEDS: FAMOTIDINE 20 MG TABLET PO (08:52)
[2023-09-10] MEDS: oxyCODONE HCL (*CRX) 5 MG TAB IR PO (08:57)
== END 2023-09-10 11:35 | disposition home or self-care (01) ==
LOC: ANHSURGERY 06:02 → ANH3MEDSUR 11:30
PROVIDERS: PCP Family Medicine; Visit Provider Orthopaedic Surgery
PROC: (CPT 27447; principal; 2023-09-09 07:30)
DX: M17.11 Unilateral primary osteoarthritis, right knee (principal); G89.18 Other acute postprocedural pain; Z87.891 Personal history of nicotine dependence
CPT/HCPCS: 64447; 27447; 36415; 73560; 80048; 80307; 82040; 82565; 82947; 85025; 86850; 86900; 86901; 87081; 97110; 97116; 97161; 97165; 97530; 97535; A9270; C1713; C1776; J0171; J0690; J1100; J1170; J1200; J1885; J2250; J2270; J2405; J2704; J2795; J3010; J7120

== ENCOUNTER 2023-09-30 12:51 | Outpatient (CLI) | payer OTHER, SELFPAY ==
--- NOTE | ~2023-09-30 | XR_ITS ---
EXAM: XR knee RT min 4V DATE: 09/30/2023 13:15 HISTORY: 2 WEEK POST KNEE REPLACEMENT . COMPARISON: None available. FINDINGS: Normal mineralization. Uncomplicated right knee arthroplasty hardware. No fracture or disl ocation. No lytic or blastic lesion. Joint spaces are maintained. No erosion or periosteal change. Mo derate-large joint effusion. Vascular calcifications. IMPRESSION: No radiographic evidence of procedure or hardware related complication. Reviewed, dictated and finalized at location K. NEL TURNER IMPRESSION: No radiographic evidence of procedure or hardware related complicat ion.
== END 2023-09-30 12:52 | disposition home or self-care (01) ==
LOC: ANHIMG 12:52
PROVIDERS: PCP Family Medicine; Visit Provider Orthopaedic Surgery
DX: Z47.89 Encounter for other orthopedic aftercare (principal)
CPT/HCPCS: 73564

== ENCOUNTER 2023-10-28 11:26 | Outpatient (CLI) | payer OTHER, SELFPAY ==
--- NOTE | ~2023-10-28 | XR_ITS ---
EXAM: XR knee RT 3V DATE: 10/28/2023 11:43 HISTORY: Presence of right artificial knee joint, SURG. AUG 2023 . COMPARISON: 09/30/2023. FINDINGS: Uncomplicated right knee arthroplasty hardware. Normal mineralization. No fracture or dislo cation. No lytic or blastic lesion. Joint spaces are maintained. No erosion or periosteal change. Mod erate volume joint fluid. Vascular calcifications. IMPRESSION: No acute osseous finding or radiographic evidence of hardware-related complication. Reviewed, dictated and finalized at location K. B ASSISTANT IMPRESSION: No acute osseous finding or radiographic evidence of hardware-relat ed complication.
== END 2023-10-28 11:27 | disposition home or self-care (01) ==
PROVIDERS: PCP Family Medicine; Visit Provider Physician Assistant Surgical
DX: Z96.651 Presence of right artificial knee joint (principal)
CPT/HCPCS: 73562

== ENCOUNTER 2024-09-11 12:45 | Outpatient (CLI) | payer OTHER, SELFPAY ==
--- NOTE | ~2024-09-11 | CT_ITS ---
EXAMINATION: CT abdomen pelvis wo con DATE: 09/11/2024 13:09 INDICATION: Z87.442 - Personal history of urinary calculi TECHNIQUE: Computed tomography (CT) of the abdomen and pelvis was performed without intravenous contr ast. Automated exposure control and iterative reconstruction technique were employed. The dose-length product was 292.90 mGy-cm. COMPARISON: 01/16/2022. FINDINGS: Lower thorax: Bibasilar scar. Liver: Normal. Biliary/Gallbladder: Gallbladder is normal. No bile duct dilation. Pancreas: No mass or duct dilation. Spleen: Normal. Adrenals:No mass. Kidneys: No suspicious mass, obstructing stone, or hydronephrosis. Punctate left upper pole and right lower pole nonobstructing calcifications. GI tract: No small or large bowel dilation. Normal appendix. Diverticulosis without diverticulitis. Mesentery/Peritoneum: No ascites, mass, or free air. Retroperitoneum: No mass. Lateral Pelvis: Pelvic organs are within normal limits, noting partial obscuration from metal artifact. Soft Tissues: Soft tissues and body wall unremarkable. Bones: No acute osseous finding. Partially visualized uncomplicated appearing left hip arthroplasty hardware IMPRESSION: Punctate bilateral nephroliths. Otherwise normal CT abdomen and pelvis findings. Reviewed, dictated and finalized at location K. CLEANER
--- NOTE | ~2024-09-11 | XR_ITS ---
EXAM: XR abdomen/kub 1V DATE: 09/11/2024 13:02 HISTORY: Z87.442 - Personal history of urinary calculi . COMPARISON: None available. FINDINGS: Clear lung bases. Normal bowel gas pattern. Enlarged liver. Granulomatous liver and spleni c calcifications. Punctate densities over the left upper pole. Severe multilevel lumbar degenerative disc disease. Partially visualized left hip arthroplasty hardware. Moderate arthritic change in the r ight hip, with chondrocalcinosis. IMPRESSION: Punctate densities project over the left upper pole may represent small nephroliths or ar tifact. CT would be helpful for further characterization. Reviewed, dictated and finalized at location K. ALLERS MECHANICAL IMPRESSION: Punctate densities project over the left upper pole may represent s mall nephroliths or artifact. CT would be helpful for further characterization.
== END 2024-09-11 12:46 | disposition home or self-care (01) ==
PROVIDERS: PCP Family Medicine; Visit Provider Nurse Practitioner Family
DX: R10.31 Right lower quadrant pain (principal); N20.0 Calculus of kidney
CPT/HCPCS: 74018; 74176

== ENCOUNTER 2025-02-02 09:12 | Outpatient (CLI) | payer OTHER, SELFPAY ==
--- OUTSIDE RECORDS SUMMARY | 2025-02-02 09:55 | XMS_ITS | Data Portability ---
Author Organization [place] - [facility] [employer], Main Office Address [address] [place] [address] Care Team Providers Care Director Group Sales Name Role Phone ELLE HOGAN Primary Care Provider ELLE HOGAN Referring Provider [phone] Assessment Encounter Date Assessment Date Assessment LastModified by Organization Details LastModified Time 12/04/2022 12/04/2022 HPI: Patient returns. He is here cortisone injection right knee. He has moderately severe lateral compartment osteoarthritis. He takes diclofenac 50 mg b.i.d. and occasionally t.i.d.. These nonsurgical measures continue to work well for him. He wishes to continue with injections. He recently had blood work done because he is on diclofenac and all his labs are normal. Physical exam: 62-year-old male alert pleasant. He walks with a minimal limp. He has a very mild valgus alignment the right knee. Mild effusion in the knee. Range which 5-135 degrees. Mild tenderness patient lateral joint line. After ChloraPrep was used on skin 20 mg Kenalog and 3 cc of 0.5% ropivacaine was injected into the right knee. Risk of infection discussed. Impression: 62-year-old male who has moderately severe lateral compartment osteoarthritis the right knee. He continues to have tolerable symptoms with nonsurgical treatment. We will see him back in 3 months for repeat injection. 20 minutes was spent treatment patient more than half of this in [id number] conversation we did refill his diclofenac today as well. [email or web address] Not available 12/04/2022 10:56:47 03/19/2023 03/19/2023 Patient returns. Lately he is being having some indigestion at night 20 takes the diclofenac and misoprostol at night so he is just taking these once a day in the morning tolerates that much better. He has severe pain if he stops the diclofenac completely and does not take the morning dose either. He is also taking tramadol which she averages about 3 times a day and also takes Tylenol. X-rays of his right knee from June 2022 demonstrated moderately severe lateral compartment osteoarthritis of the right knee on the PA flexion Stork view. Patient has been advised that we may or may not be excepting [employer] insurance. He feels that he is at the point where he would like to proceed with knee replacement surgery. I explained that I believe we are taking signature is but there may be some recur denture Ling hang ups. My employer was was recently purchased by [employer] a [employer] so there re Kenia Julian issues have to be resolved. I have offered her to refer him to another orthopedic surgeon the [facility] group. He would rather wait and see what happens over next 3 months and will have a cortisone shot of the right knee today. Risk of side effects including risk of infected discussed. After ChloraPrep prep, 20 mg of Kenalog and 4 cc of 0.5% ropivacaine were injected into the right knee without difficulty. I have given him the Ortho info handout on knee replacement for him to review. He will call us in 1 month to see if we are going to be tyson with [employer] and if so he will come in for discussion of knee replacement surgery. He understands will need to wait minimum of 3 months after the injection for doing the surgery. 20 minutes were spent total care this patient more than half the time spent in [id number] care. [email or web address] Not available 03/22/2023 12:37:25 Plan of Treatment Reminders Order Date Submit Date Provider Last Modified By Organization Details Last Modified Time Details Appointments None recorded. Lab None recorded. Referral None recorded. Procedures injection/a spiration joint/bursa (PROC) - in office procedure, administere d by provider 2022 023 [email or web address] In-Office Order, Internal Use Only DO Not Attach Compendium DO Not Attach Compendium, Do Not Delete/merge, [id number] 09:50:00 injection/a spiration joint/bursa (PROC) - in office procedure, administere d by provider 2022 023 In-Office Order, Internal Use Only DO Not Attach Compendium DO Not Attach Compendium, Do Not Delete/merge, [id number] 10:21:45 Surgeries None recorded. Imaging None recorded. Medication Orders Kenalog 10 mg/mL suspension for injection 2022 023 [facility][id number], [address], [place], [place], [id number], 3 16:44:49 ropivacaine (PF) 5 mg/mL (0.5 %) injection solution 2022 023 [facility] #[id number], [address], [place], [place], [id number], 3 16:44:49 Kenalog 10 mg/mL suspension for injection 2022 023 [facility] #[id number], [address], [place], [place], [id number], 3 16:20:26 ropivacaine (PF) 5 mg/mL (0.5 %) injection solution 2022 023 [facility] #[id number], [address], [place], [place], [id number], 3 16:20:26 Patient TargetsNo targets recorded. Patient InstructionsNo instructions recorded. Reason for Referral None Reported. Results Created Date Observation Date Name Description Value Unit Range Abnormal Flag Note LastModifiedBy Organization Detail LastModifiedTime 07/17/20 22 07/17/2022 MRI, knee, w/o contr ast No observ ation record ed. [id number] [facility] [address], [place], [address], 10/23/2022 01:03:01 07/25/20 22 07/26/2022 XR, knee No observ ation record ed. [id number] [address], [place], [address], 10/23/2022 01:03:01 Result Notes None recorded. Problems Name Problem SNOMED Code Status Onset Date Resolution Date Notes Provider Name and Address Organization Details Recorded Time Osteoarthr itis of hip 975454487 Active 2019 Not Available [facility] 3 00:55:10 Effusion of joint of right knee 2359183225330 04 Active 2021 Not Available [facility] 3 00:55:10 Osteoarthr itis 663722646 Active 2022 Not Available [facility] 3 00:55:10 Pain of right knee joint 4448429805351 00 Active 2021 Not Available [facility] 3 00:55:10 History of total hip arthroplas ty 777525511230 Active 2021 Not Available [facility] 3 00:55:10 Osteoarthr itis of right knee joint 3996219968957 00 Active 2022 Lashonda Camilo, JOHN null, [place] [facility] 3 09:39:44 Problem Notes None recorded. Procedures Surgical History Date Name Laterality Status Provider Name and Address Organization Details Recorded Time 0 Hip surgery completed Not Available [facility] 10/24/19 23 00:49:03 0 Neck Surgeries completed Not Available [facility] 10/23 00:49:03 Shoulder completed Not Available [facility] 00:49:03 Imaging Results None recorded. Procedure Notes None recorded. Medical Equipment None Reported. Allergies Allergen ID Allergen Name Allergen Category Reaction Reaction Severity Criticality Documentation Date Start Date Code Code System Note Provider Name and Address Organization Details Recorded Time 1363 Non-stero idal anti-infl ammatory agent (product) medicatio n Not available Not available Not available 10/23/2022 36303 005 SNOMED stoma ch upset Not Available [facility] 3 01:02:39 Medications Name Sig Start Date Stop Date Status Note LastModified by Organization Details LastModified Time cyclobenzap rine 10 mg tablet active Not Available Not Available Not Available amoxicillin 500 mg capsule TK 4 CS PO 1 HOUR B DENTAL PRO active Not Available Not Available No t Available prednisone 10 mg tablet TK 3 TS PO QD 02/02 completed Not Available Not Available Not Available atorvastati n 20 mg tablet TK 1 T PO QD active Not Available Not Available No t Available ibuprofen 800 mg tablet TAKE 1 TABLET BY MOUTH EVERY 6 HOURS NEEDED FOR PAIN 11/03 completed Not Available Not Available Not Available tizanidine 4 mg tablet TAKE 1 TABLET BY MOUTH EVERY EVENING active Not Available Not Available No t Available ranitidine 300 mg tablet TK 1 T PO QD HS 07/16 completed Not Available Not Available Not Available hydrocodone 5 mg-acetamin ophen 325 mg tablet TAKE 1 TABLET BY MOUTH EVERY 4 HOURS NEEDED FOR PAIN 10/26 completed Not Available Not Available Not Available meloxicam 15 mg tablet TK 1 T PO D active Not Available Not Available No t Available ondansetron HCl 4 mg tablet TAKE 1 TABLET BY MOUTH EVERY 8 HOURS NEEDED FOR NAUSEA OR VOMITING 05/31 completed Not Available Not Available Not Available Zyrtec 10 mg tablet Take 1 tablet every day by oral route. 05/05 completed Not Available Not Available Not Available omeprazole 40 mg capsule,del ayed release TK ONE C PO QD B A MEAL 07/16 completed Not Available Not Available Not Available tramadol 50 mg tablet TAKE 1 TABLET BY MOUTH EVERY 8 HOURS NEEDED FOR PAIN active Not Available Not Available No t Available oxycodone-a cetaminophe n 5 mg-325 mg tablet TAKE 1 TABLET BY MOUTH EVERY 6 HOURS NEEDED FOR PAIN 05/31 completed Not Available Not Available Not Available amoxicillin 875 mg tablet TAKE 1 TABLET BY MOUTH EVERY 12 HOURS UNTIL ALL TAKEN 10/23 completed Not Available Not Available Not Available tamsulosin 0.4 mg capsule TAKE 1 CAPSULE BY MOUTH DAILY 05/31 completed Not Available Not Available Not Available Kenalog 10 mg/mL suspension for injection in office 2022 active [facility]: 0003- 0494- 20 Not Available Not Available Not Available benzonatate 100 mg capsule TAKE 1 CAPSULE BY MOUTH THREE TIMES DAILY NEEDED FOR COUGH 12/04 completed Not Available Not Available Not Available cephalexin 500 mg capsule TAKE 1 CAPSULE BY MOUTH FOUR TIMES DAILY FOR 2 DAYS 02/22 completed Not Available Not Available Not Available dexamethaso ne 4 mg tablet 02/02 completed Not Available Not Available Not Available misoprostol 200 mcg tablet TAKE 1 TABLET BY MOUTH TWICE DAILY WITH DICLOFENA C active Not Available Not Available No t Available metronidazo le 0.75 % topical cream BRITANY 1 APPLICATI ON AA D active Not Available Not Available No t Available cefadroxil 1 gram tablet active Not Available Not Available Not Available gabapentin 300 mg capsule TAKE 1 CAPSULE BY MOUTH TWICE DAILY 02/02 completed Not Available Not Available Not Available omeprazole 20 mg capsule,del ayed release TAKE 1 CAPSULE BY MOUTH DAILY FIRST THING IN THE MORNING ON AN EMPTY STOMACH active Not Available Not Available No t Available mupirocin 2 % topical ointment BRITANY A PEA SIZE OF OINTMENT TO EACH NOSTRIL BID . START 5 DAYS B SURGERY. DO NOT U DAY OF SURGERY 02/01 completed Not Available Not Available Not Available diclofenac sodium 50 mg tablet,jossie yed release TAKE 1 TABLET BY MOUTH TWICE DAILY active Not Available Not Available No t Available ergocalcife rol (vitamin D2) 1,250 mcg (50,000 unit) capsule TK ONE C PO Q WK 03/10 completed Not Available Not Available Not Available zolpidem 10 mg tablet TK 1 T PO ATN [employer]F [employer] 07/16 completed Not Available Not Available Not Available albuterol sulfate HFA 90 mcg/actuati on aerosol inhaler INHALE 1 PUFF EVERY 4 HOURS NEEDED FOR SHORTNESS OF BREATH OR WHEEZING 02/02 completed Not Available Not Available Not Available celecoxib 100 mg capsule TAKE 1 CAPSULE BY MOUTH TWICE DAILY 09/04 completed Not Available Not Available Not Available magnesium 250 mg (as magnesium oxide) tablet Take by oral route. 2021 active Not Available Not Available Not Avai lable oxycodone 5 mg tablet TK 1 T PO Q 4 H active Not Available Not Available No t Available Senna-S 8.6 mg-50 mg tablet TK 2 TS PO BID TO PREVENT CONSTIPAT ION. HOLD FOR LOOSE STOOLS active Not Available Not Available No t Available enoxaparin 40 mg/0.4 mL subcutaneou s syringe INJECT 40 MG SQ Q 24 HOURS FOR 28 DOSES active Not Available Not Available No t Available rosuvastati n 20 mg tablet TAKE 1 TABLET BY MOUTH DAILY 02/22 completed Not Available Not Available Not Available pregabalin 75 mg capsule TK ONE C PO BID 08/21 completed Not Available Not Available Not Available aspirin 2020 active Not Available Not Available Not Avai lable Fish Oil 1200 mg once daily 2018 active Not Available Not Available Not Avai lable Zyrtec 2021 active Not Available Not Available Not Avai lable celecoxib 09/04 completed Not Available Not Available Not Available lidocaine (PF) 10 mg/mL (1 %) injection solution In office injection administe red by the provider 02/02 completed [facility]: 0409- 4276- [phone] Not Available Not Available Not Available Suprep Bowel Prep Kit 17.5 gram-3.13 gram-1.6 gram oral solution MIX AND DRINK UTD active Not Available Not Available No t Available ropivacaine (PF) 5 mg/mL (0.5 %) injection solution in office 2022 active [facility] [phone] -[phone]- [phone] Not Available Not Available Not Available Shingrix (PF) 50 mcg/0.5 mL intramuscul ar suspension, kit PHARMACIS T ADMINISTE RED IMMUNIZAT ION ADMINISTE RED AT TIME OF DISPENSIN G 11/03 completed Not Available Not Available Not Available Fluzone Quad (PF) 60 mcg (15 mcg x 4)/0.5 mL IM syringe PHARMACIS T ADMINISTE RED IMMUNIZAT ION ADMINISTE RED AT TIME OF DISPENSIN G 07/16 completed Not Available Not Available Not Available Flublok Quad (PF) 180 mcg (45 mcg x 4)/0.5 mL IM syringe PHARMACIS T ADMINISTE RED IMMUNIZAT ION ADMINISTE RED AT TIME OF DISPENSIN G active Not Available Not Available No t Available Vitals Date Recorded Body height Provider Name an d Address Organization Details Last Updated DateTime 09/04/2022 172.72 cm Not Available [facility] 3 00:51:33 Date Recorded Body height Body mass index (BMI) Body weight Provider Name and Address Organization Details Last Updated DateTime 12/04/2022 172.72 cm 29.5 kg/m2 99514.92 g BARBARA Brady [facility] [employer] [facility] 12/04/2022 10:25:02 Date Recorded Body height Provider Name an d Address Organization Details Last Updated DateTime 03/19/2023 172.72 cm BARBARA Brady [facility] 03/19/2023 09:48:36 Date Recorded Body height Provider Name an d Address Organization Details Last Updated DateTime 06/28/2022 172.72 cm Not Available [facility] 00:51:33 Date Recorded Body height Provider Name an d Address Organization Details Last Updated DateTime 07/25/2022 172.72 cm Not Available [facility] 00:51:33 Social History Question Answer Notes LastModified by Organizat ion Details LastModified Time Tobacco Smoking Status Never Smoker Not Available [facility] 10/23/2022 00:47:06 What Was The Date Of Your Most Recent Tobacco Screening? 11/03/2020 [id number] Information not available 10/23/2022 Sex: Unknown Functional Status None recorded. Mental Status None recorded. Family History Relationship Description Onset Age of this Age Resolved Age Notes LastModified by Organization Details LastModified Time Sister Diabetes mellitus [id number] Not available 10/23/2022 00:49:06 Sister Family history of malignant neoplasm [id number] Not available 10/23/2022 00:49:06 Unspecified Relation Family history of stroke [id number] Not available 10/23/2022 00:49:06 Medical History Condition Response BLINDNESS N KIDNEY STONES N MRSA N CARPAL TUNNEL SYNDROME N LUNG DISEASE/DISORDER N HISTORY OF DRUG ABUSE N RADIATION / CHEMOTHERAPY N COPD N SPORTS INJURY N ANKLE PAIN N BLOOD DISEASES N SCHIZOPHRENIA N SHINGLES N BOWEL PROBLEMS N SHOULDER PAIN N DEPRESSION (INCLUDING POST ) N STROKE/TIA N KNEE PAIN N ULCERS N BENIGN PROSTATIC HYPERPLASIA N OBESITY N GERD/NAUSEA N ANEURYSM N URINARY/BLADDER/KIDNEY PROBLEMS N CORONARY ARTERY DISEASE (CAD) N ADDICTION CONCERNS N USE OF BLOOD THINNERS N SKIN PROBLEMS N EMPHYSEMA N MUSCLE,JOINT OR BONE PROBLEMS N DVT N STOMACH ULCERS N BLOOD CLOTS N USE OF NSAIDS Y CONCUSSION OR SPINAL TRAUMA N NEUROPATHY N AIDS/HIV N FRACTURES N ELBOW PAIN N HYPERTENSION N TOURETTE'S N ANXIETY DISORDER N Metal allergy N BLOOD TRANSFUSION N ANEMIA/BLOOD DISORDER N BIPOLAR DISORDER N BRONCHITIS N OSTEOARTHRITIS N TUBERCULOSIS N FOOT PROBLEM N HEART VALVE DISORDERS N ALLERGIES/HAYFEVER N SOFT TISSUE INJURY N INFECTIOUS DISEASE N HEART ARRHYTHMIA N INSOMNIA N RHEUMATOID ARTHRITIS N HIGH CHOLESTEROL / HYPERLIPIDEMIA N EDEMA N CHRONIC PAIN SYNDROME N CAROTID BLOCKAGE N BACK / NECK PROBLEMS N HAVE YOU BEEN HOSPITALIZED OR SEEN IN [facility] IN THE PAST YEAR ? N BURSITIS N HERNIATED DISC N DIALYSIS N FIBROMYALGIA N OSTEOPOROSIS N ARTHRITIS Y NO SIGNIFICANT PAST MEDICAL HISTORY N PERIPHERAL NEUROPATHY N DIABETES, TYPE N HEARTBURN / REFLUX N HEPATITIS / LIVER DISEASE N GOUT N SLEEP DISORDER N ALZHEIMER'S DISEASE N HERPES N SEIZURES/EPILEPSY N HEADACHES/MIGRAINES N VASCULAR DISEASE N HIP PAIN N Blood Disorder N DIZZINESS N HEAD TRAUMA OR INJURY N HEART DISEASE/HEART PROBLEMS N MULTIPLE SCLEROSIS N CARDIAC ARRHYTHMIA N CANCER: SPECIFY N ANESTHESIA COMPLICATIONS N ATRIAL FIBRILLATION N AUTOIMMUNE DISEASE N Past Encounters Encounter ID Performer Location Encounter Start Date Encounter Closed Date Diagnosis/Indication Diagnosis SNOMED-CT Code Diagnosis ICD10 Code Diagnosis Note [id number] Nolberto Hernandez MD [facility] [address] [place], [place] [address] 10/23/2020 00:00:00 10/23/2020 13:51:37 [id number] Nolberto Hernandez MD [facility] [address] [place], [place] [address] 11/03/2020 00:00:00 11/03/2020 11:29:10 [id number] Nolberto Hernandez MD [facility] [address] [place], [place] [address] 02/02/2021 00:00:00 02/02/2021 12:32:37 [id number] Nolberto Hernandez MD [facility] [address] [place], [place] [address] 03/30/2021 00:00:00 04/01/2021 14:07:05 [id number] Nolberto Hernandez MD [facility] [address] [place] [address] 05/09/2021 00:00:00 05/09/2021 09:00:37 [id number] Nolberto Hernandez MD [facility] [address] [place] [address] 10/26/2021 00:00:00 10/26/2021 12:17:43 [id number] Nolberto Hernandez MD [facility] [address] [place] [address] 02/22/2022 00:00:00 02/22/2022 11:46:37 [id number] Nolberto Hernandez MD [facility] [address] [place] [address] 05/31/2022 00:00:00 06/02/2022 14:45:49 [id number] Nolberto Hernandez MD [facility] [address] [place] [address] 06/28/2022 00:00:00 06/28/2022 09:36:14 [id number] Nolberto Hernandez MD [facility] [address] [place] [address] 07/25/2022 00:00:00 08/01/2022 17:14:01 [id number] Nolberto Hernandez MD [facility] [address] [place] [address] 09/04/2022 00:00:00 09/04/2022 10:46:10 [id number] Nolberto Hernandez MD [facility] [address] [place] [address] 12/04/2022 10:00:08 12/04/2022 11:24:55 Osteoarthritis of right knee joint 9572006929 78253 M17.11 Z79.1 [id number] MD DEV [facility] [address] [place] [address] 03/19/2023 09:44:04 03/24/2023 09:38:40 Osteoarthritis of right knee joint 5307154678 34531 M17.11 Z79.1 Health Concerns Section Related Observation LastModified by Organization Detai ls LastModified Time None Recorded Concern Status LastModified by Organization Details LastModified Time None Recorded Advance Directives Directive None Recorded Payers Encounter Date Sequence Insurance Name Policy Number Policy Laws Covered Member ID Laws Member ID Guarantor Name 12/04/2022 1 [employer] [id number] Johnathan Putnam [id number] Johnathan Putnam 03/19/2023 1 [employer] [id number] Johnathan Putnam [id number] Johnathan Putnam
--- OUTSIDE RECORDS SUMMARY | 2025-02-02 09:56 | XMS_ITS | Referral Summary ---
Author Organization [facility] [address] [place] [address] [place] [id number] Care Team Providers Care Substation Maintenance Technician Name Role Phone Humble Kim MD Primary Care Provider + [phone] Allergies Active Allergy Reactions Criticality Noted Date Comments Nsaids (Non-Steroidal Anti-Inflammatory Drug) Diarrhea,Stomach upset Low 07/09/2018 Propoxyphene Nausea & Vomiting Low 10/07/2019 Medications ascorbic acid (vitamin C) 1,000 mg tabletIndicatio ns:Vitamin C Deficiency,supp lement Take 1,000 mg by mouth every morning Active fish oil-dha-epa 1,200-144-216 mg capsuleIndicati ons:OTC Take 1 capsule by mouth every morning HLD Active cetirizine (ZyrTEC) 10 mg tabletIndicatio ns:Seasonal Allergic Rhinitis Take 10 mg by mouth daily as needed for allergies Active DM/acetaminophe n/doxylamine (VICKS NYQUIL NIGHTTIME RELIEF ORAL)Indication s:OTC Take 1 Dose by mouth as needed Active calcium carbonate (TUMS) 500 mg calcium (200 mg of elemental calcium) chewable tabletIndicatio ns:Heartburn Take 2 tablets by mouth as needed for indigestion or heartburn Active aspirin 81 mg enteric coated tabletIndicatio ns:prevention of thrombosis Take 1 tablet (81 mg total) by mouth research clerk before breakfast 0 Active Additional Information Patient taking differently:81 mg oral Daily (early AM),Indications: prevention of thrombosis, primary prevention, Reason: Not effective, Reported on 07/09/2021 tiZANidine (ZANAFLEX) 4 mg tablet Take 1 tablet (4 mg total) by mouth every 8 (eight) hours as needed for muscle spasms 90 tablet 0 Active Additional Information Patient taking differently:4 mg oral Every 8 hours PRN, muscle spasms,Indications: Muscle Spasm, Reason: legs, Informant: Self, Reported on 07/09/2021 rosuvastatin (CRESTOR) 20 mg tabletIndicatio ns:hyperlipidem ia Take 20 mg by mouth 3 (three) times a week Active magnesium oxide 400 mg magnesium capsuleIndicati ons:hypomagnese mae Take 1 tablet by mouth 3 (three) times a week Active cannabidiol, CBD, (EPIDIOLEX) 100 mg/mL solutionIndicat ions:joint pain Take 5 mg/kg by mouth every morning Active celecoxib (CeleBREX) 100 mg capsuleIndicati ons:Osteoarthri tis,Rheumatoid Arthritis Take 100 mg by mouth 3 (three) times a week Active acetaminophen (TYLENOL) 500 mg tabletIndicatio ns:Arthritic Pain Take 1,000 mg by mouth every 6 (six) hours as needed for pain Active diphenhydrAMINE -acetaminophen (TYLENOL PM) 25-500 mg tabletIndicatio ns:Insomnia Take 1 tablet by mouth nightly as needed for sleep Active Active Problems Problem Noted Date Diagnosed Date Glenohumeral arthritis, right 05/21/2021 Overview (05/21/2021): Added automatically from request for surgery [id number] S/P cervical spinal fusion 12/10/2019 Cervical disc disorder with myelopathy of mid-cervical region 09/27/2019 Overview (09/27/2019): Added automatically from request for surgery [id number] History of DVT (deep vein thrombosis) 03/23/2019 Rotator cuff tear arthropathy of left shoulder 0 02/15/2019 Overview (02/15/2019): Added automatically from request for surgery [id number] Carpal tunnel syndrome on left 06/29/2018 Overview (06/29/2018): Added automatically from request for surgery [id number] Cubital tunnel syndrome on left 06/29/2018 Overview (06/29/2018): Added automatically from request for surgery [id number] Arthralgia of shoulder 09/22/2014 Numbness and tingling of left hand Immunizations Immunization Administration Dates Next Due Influenza, Quadrivalent, Rec ombinant, Egg Free, Preservative Free, Intramuscular 06/10/2020 Influenza, Quadrivalent, Spl it, Preservative Free, Intramuscular 06/20/2019,06/14/2018,07/13/2017,06/06 Influenza, Trivalent, IM (MDV) 06/06/2012 ZOSTER Recombinant 08/29/2019,06/30/2019 Social History Tobacco Use Types Packs/Day Years Used Date Smoking Tobacco: Former Cigarettes 3 15 1 977 - 09/24/1988 Smokeless Tobacco: Never Tobacco Cessation:Counseling Given: No Alcohol Use Standard Drinks/Week Comments Yes 1 (1 standard drink = 0.6 oz pure alcohol) history of heavy alcohol use up until 1994 AUDIT-C Answer Date Recorded Q1: How often do you have a drink containing alc ohol? Monthly or less 07/09/2021 Q2: How many drinks containi ng alcohol do you have on a typical day when you are drinking? 1 or 2 07/09/2021 Q3: How often do you have si x or more drinks on one occasion? Never 07/09/2021 PHQ-2 Answer Date Recorded PHQ-2 Total Score 0 10/26/2019 Sex and Gender Information Value Date Recorded Sex Assigned at Not on file Legal Sex Male 5:09 AM [employer] Gender Identity Male 06/27/2021 10:46 AM CDT Sexual Orientation Not on file Last Filed Vital Signs Vital Sign Reading Time Taken Comments Blood Pressure 139/85 07/09/2021 8:04 AM [employer] Pulse 67 07/09/2021 8:00 AM [employer] Temperature 37.3 C (99.1 F) 10/27/2019 11:30 AM [employer] Respiratory Rate 18 07/09/2021 8:00 AM [employer] Oxygen Saturation 95% 07/09/2021 8:00 AM [employer] Inhaled Oxygen Concentration - - Weight 87 kg (191 lb 12.8 oz) 07/09/2021 8:00 AM [employer] Height 177.8 cm (5' 10) 07/09/2021 8:00 AM [employer] Body Mass Index 27.52 07/09/2021 8:00 AM [employer] Plan of Treatment Not on file Medical Devices Implanted Type Area Plant Production Manager Device Identifier Shelf Expiration Date Model / Serial / Lot Navin [employer] [id number] 25mm Reverse Shoulder Baseplate Glenoid Trabecular Metal - [id number] Implanted:Qty: 1 on 03/25/2019 by Rodolfo Sapp MD at [facility] Left: Shoulder Navin [employer] [id number] 02/21/2029 [id number] / / [id number] Navin [employer] [id number] 36mm Reverse Shoulder Sphere Glenoid Trabecular Metal - [id number] Implanted:Qty: 1 on 03/25/2019 by Rodolfo Sapp MD at [facility] Left: Shoulder [employer] [id number] 12/22/2028 [id number] / / [id number] Navin [employer] [id number] Ncb Anatomical Shoulder 4.5mm 48mm Inverse Reverse Lock Self Tap - [id number] Implanted:Qty: 1 on 03/25/2019 by Rodolfo Sapp MD at [facility] Left: Shoulder [employer] [id number] 11/23/2023 [id number] / / [id number] Navin [employer] [id number] Ncb Anatomical Shoulder 4.5mm 48mm Inverse Reverse Lock Self Tap - [id number] Implanted:Qty: 1 on 03/25/2019 by Rodolfo Sapp MD at [facility] Left: Shoulder Navin [employer] [id number] 11/23/2023 [id number] / / [id number] [employer] 1624-109ns Ayesha 3/32in 9in 2 Trocar Pin Fixation Nonsterile - [id number] Implanted:Qty: 1 on 03/25/2019 by Rodolfo Sapp MD at [facility] Left: Shoulder [employer] 08/25/2019 [id number] / / Navin [employer] [id number] 14mm 130mm Shoulder Stem Humeral Trabecular Metal Tivanium - [id number] Implanted:Qty: 1 on 03/25/2019 by Rodolfo Sapp MD at [facility] Left: Shoulder [employer] [id number] 01/22/2029 [id number] / / [id number] Navin [employer] Inc [id number] 36mm H+3mm Reverse Retentive Humerus 12d 65d Liner Shoulder - [id number] Implanted:Qty: 1 on 03/25/2019 by Rodolfo Sapp MD at [facility] Left: Shoulder [employer]in [employer] [id number] 05/24/2021 [id number] / / [id number] Magnolia Spine [id number] Aviator 32x17.4x2.5mm Level 2 Automatic Lock System Spring Load - [id number] Implanted:Qty: 1 on 10/26/2019 by Charlie Bernal MD at [facility] N/A: Spine Cervical Laxmi Spine [id number] / / Laxmi Spine [id number] Aviator 4mm 14mm Variable Angle Self Tap Spine Cervical Anterior - [id number] Implanted:Qty: 6 on 10/26/2019 by Charlie Bernal MD at [facility] N/A: Spine Cervical Magnolia Spine [id number] / / Abyrx Os-201 Hemasorb Os-Spa Spatula Wax 2gm Bone Sterile - [id number] Implanted:Qty: 1 on 10/26/2019 by Charlie Bernal MD at [facility] N/A: Spine Cervical Abyrx 05/24/2022 OS-201 / / Musculoskeletal Transplant [id number] 4-30mm Allograft Frozen [id number] Wedge Graft Bone - [id number] - [id number] Implanted:Qty: 1 on 10/26/2019 by Charlie Bernal MD at [facility] N/A: Spine Cervical Musculoskeletal Transplant 02/05/2024 [id number] / [id number] / Insurance CIG[employer] OPEN ACCESS CIGNA OPEN ACCESS CIGNA OPEN ACCESS Advance Directives For more information, please contact: [phone] * Full Code (Latest Code Status on File) Date Activated Date Inactivated Comments 10/26/2019 2:07 PM 10/27/2019 6:33 PM * Full Code Date Activated Date Inactivated Comments 03/25/2019 3:33 PM 03/26/2019 6:43 PM * Full Code Date Activated Date Inactivated Comments 03/25/2019 3:33 PM 03/25/2019 3:33 PM Care Teams Substation Maintenance Technician Relationship Specialty Start Date End Date Humble Kim MD PCP - General Family Medicine 06/26/18
--- OUTSIDE RECORDS SUMMARY | 2025-02-02 09:56 | XMS_ITS | Clinical Summary ---
Author Organization [facility] [address] [place] [address] [place] [id number] Care Team Providers Care Registered Associate Name Role Phone Humble Kim MD Primary Care Provider + [phone] Allergies Active Allergy Reactions Criticality Noted Date [...] 1 tablet (81 mg total) by mouth early childhood aide classroom before breakfast 0 Active Additional Information Patient [...] (05/21/2021): Added automatically from request for surgery [id number] S/P cervical spinal fusion 12/10/2019 Cervical disc disorder with myelopathy of mid-cervical region 09/27/2019 Overview (09/27/2019): Added automatically from request for surgery [id number] History of DVT (deep vein thrombosis) 03/23/2019 Rotator cuff tear arthropathy of left shoulder 0 02/15/2019 Overview (02/15/2019): Added automatically from request for surgery [id number] Carpal tunnel syndrome on left 06/29/2018 Overview (06/29/2018): Added automatically from request for surgery [id number] Cubital tunnel syndrome on left 06/29/2018 Overview (06/29/2018): Added automatically from request for surgery [id number] Arthralgia of shoulder 09/22/2014 Numbness and tingling of left hand Immunizations Immunization Administration Dates Next Due Influenza, Quadrivalent, Rec ombinant, Egg Free, Preservative Free, Intramuscular 06/10/2020 Influenza, Quadrivalent, Spl it, Preservative Free, Intramuscular 06/20/2019,06/14/2018,07/13/2017,06/06 Influenza, Trivalent, IM (MDV) 06/06/2012 ZOSTER Recombinant 08/29/2019,06/30/2019 Surgical History Surgery Date Site/Laterality Comments HAND SURGERY 08/25/1988 - 08/24/1989 Left 5th digit desleeved SHOULDER SURGERY 08/25/2008 - 08/24/2009 Left bone graft CARPAL TUNNEL RELEASE 06/25/2018 - 07/24/2018 Left ROTATOR CUFF REPAIR 08/25/2009 - 08/24/2010 Right TOTAL SHOULDER REPLACEMENT 08/25/2018 - 08/24/2019 Left LEG SURGERY 08/25/1968 - 08/24/1969 Right large calf muscle Lac WISDOM TOOTH EXTRACTION 08/25/1976 - 08/24/1977 Bilateral Medical History Medical History Date Comments H/O blood clots 2009 DVT, RLE Hypercholesteremia Peripheral neuropathy GERD (gastroesophageal reflux disease) Seasonal allergies Osteoarthritis left hip DVT (deep venous thrombosis) ([facility]) PONV (postoperative nausea and vomiting) nausea after shoulder replacement Family History Medical History Relation Name Comments Hypertension Maternal Grandmother Early Mother Diabetes Sister Anesthesia problems Neg Hx Relation Name Status Comments Maternal Grandmother Mother Sister Social History Tobacco Use Types Packs/Day Years [...] on file Legal Sex Male 5:09 AM [employer] Gender Identity Male 06/27/2021 10:46 AM CDT Sexual Orientation Not on file Obstetrics History Last Filed Vital Signs Vital Sign Reading Time Taken Comments Blood Pressure 139/85 07/09/2021 8:04 AM [employer] Pulse 67 07/09/2021 8:00 AM [employer] Temperature 37.3 C (99.1 F) 10/27/2019 11:30 AM [employer] Respiratory Rate 18 07/09/2021 8:00 AM [employer] Oxygen Saturation 95% 07/09/2021 8:00 AM [employer] Inhaled Oxygen Concentration - - Weight 87 kg (191 lb 12.8 oz) 07/09/2021 8:00 AM [employer] Height 177.8 cm (5' 10) 07/09/2021 8:00 AM [employer] Body Mass Index 27.52 07/09/2021 8:00 AM [employer] Plan of Treatment Not on file Medical Devices Implanted Type Area Naturalization Examiner Device Identifier Shelf Expiration Date Model / Serial / Lot Navin [employer] [id number] 25mm Reverse Shoulder Baseplate Glenoid Trabecular Metal - [id number] Implanted:Qty: 1 on 03/25/2019 by Rodolfo Sapp MD at [facility] Left: Shoulder Navin [employer] Inc [id number] 02/21/2029 [id number] / / [id number] Navin [employer] Inc [id number] 36mm Reverse Shoulder Sphere Glenoid Trabecular Metal - [id number] Implanted:Qty: 1 on 03/25/2019 by Rodolfo Sapp MD at [facility] Left: Shoulder Navin [employer] Inc [id number] 12/22/2028 [id number] / / [id number] Navin [employer] Inc [id number] Ncb Anatomical Shoulder 4.5mm 48mm Inverse Reverse Lock Self Tap - [id number] Implanted:Qty: 1 on 03/25/2019 by Rodolfo Sapp MD at [facility] Left: Shoulder [employer] Inc [id number] 11/23/2023 [id number] / / [id number] Navin [employer] Inc [id number] Ncb Anatomical Shoulder 4.5mm 48mm Inverse Reverse Lock Self Tap - [id number] Implanted:Qty: 1 on 03/25/2019 by Rodolfo Sapp MD at [facility] Left: Shoulder Navin [employer] Inc [id number] 11/23/2023 [id number] / / [id number] [employer] 1624-109ns Steinmann 3/32in 9in 2 Trocar Pin Fixation Nonsterile - [id number] Implanted:Qty: 1 on 03/25/2019 by Rodolfo Sapp MD at [facility] Left: Shoulder [employer] 08/25/2019 [id number] / / Navin Bi[employer] Inc [id number] 14mm 130mm Shoulder Stem Humeral Trabecular Metal Tivanium - [id number] Implanted:Qty: 1 on 03/25/2019 by Rodolfo Sapp MD at [facility] Left: Shoulder Navin [employer] Inc [id number] 01/22/2029 [id number] / / [id number] Navin [employer] Inc [id number] 36mm H+3mm Reverse Retentive Humerus 12d 65d Liner Shoulder - [id number] Implanted:Qty: 1 on 03/25/2019 by Rodolfo Sapp MD at [facility] Left: Shoulder Navin [employer] [id number] 05/24/2021 [id number] / / [id number] Laxmi Spine [id number] Aviator 32x17.4x2.5mm Level 2 Automatic Lock System Spring Load - [id number] Implanted:Qty: 1 on 10/26/2019 by Charlie Bernal MD at [facility] N/A: Spine Cervical Laxmi Spine [id number] / / Laxmi Spine [id number] Aviator 4mm 14mm Variable Angle Self Tap Spine Cervical Anterior - [id number] Implanted:Qty: 6 on 10/26/2019 by Charlie Bernal MD at [facility] N/A: Spine Cervical [employer] Spine [id number] / / Abyrx Os-201 Hemasorb Os-Spa Spatula Wax 2gm Bone Sterile - [id number] Implanted:Qty: 1 on 10/26/2019 by Charlie Bernal MD at [facility] N/A: Spine Cervical Abyrx 05/24/2022 OS-201 / / Musculoskeletal Transplant [id number] 4-30mm Allograft Frozen [id number] Wedge Graft Bone - [id number] - [id number] Implanted:Qty: 1 on 10/26/2019 by Charlie Bernal MD at [facility] N/A: Spine Cervical Musculoskeletal Transplant 02/05/2024 [id number] / [id number] / Insurance [employer] OPEN ACCESS [employer] OPEN ACCESS [facility] OPEN ACCESS Advance Directives For more information, please contact: [phone] * Full Code (Latest Code Status on File) Date Activated Date Inactivated Comments 10/26/2019 2:07 PM 10/27/2019 6:33 PM * Full Code Date Activated Date Inactivated Comments 03/25/2019 3:33 PM 03/26/2019 6:43 PM * Full Code Date Activated Date Inactivated Comments 03/25/2019 3:33 PM 03/25/2019 3:33 PM Care Teams Registered Associate Relationship Specialty Start Date End Date Humble Kim MD PCP - General Family Medicine 06/26/18
--- NOTE | 2025-02-02 10:02 | ECHO_ITS ---
Patient Info Name: Johnathan Putnam Age: 65 years : 1960 Gender: Male Ht: 69 in Wt: 182 lbs BSA: 2.02 m2 HR: 58 bpm BP: 152 / 105 mmHg Technical Quality: Fair Exam Date: 02/02/2025 10:15 AM Patient Status: O Admit Date: 02/02/2025 Exam Type: CA echo doppler color flow Complete two-dimensional, color flow and Doppler transthoracic echocardiogram is performed. Cyber Systems Administrator: Jael Cruz Attending Provider: Jennifer Welch Summary 1. Complete two-dimensional, color flow and Doppler transthoracic echocardiogram is performed. 2. Left ventricular chamber dimension is normal. 3. Left ventricular systolic function is normal, estimated at 60-65. 4. The left ventricular diastolic function is grade I diastolic dysfunction. 5. There is trace mitral valve regurgitation. Left Ventricle Tissue doppler was not performed. Left ventricular chamber dimension is normal. Left ventricular systolic function is normal, estimated at 60-65. The left ventricular diastolic function is grade I diastolic dysfunction. Right Ventricle Right ventricular chamber dimension is normal. Right ventricular systolic function is normal and with normal TAPSE 2.5 cm. Left Atria Left atrial chamber dimension is normal. Right Atria Right atrial chamber dimension is normal. Aortic Valve The aortic valve is trileaflet. There is no aortic valve stenosis. There is no aortic valve regurgitation. Pulmonic Valve There is no pulmonic regurgitation. Mitral Valve There is no mitral valve stenosis. There is trace mitral valve regurgitation. Tricuspid Valve There is no tricuspid valve regurgitation. Pericardium/Pleural There is no pericardial effusion. Inferior Vena Cava Normal inferior vena cava with >50% collapse upon inspiration consistent with normal right atrial pressure, 5 mmHg. Aorta The aortic root size at the sinus of Valsalva is normal. Left Ventricular Outflow Tract Name Value Normal LVOT 2D LVOT Diameter 2.1 cm LVOT Doppler LVOT Peak Velocity 93 cm/s LVOT Peak Gradient 3 mmHg LVOT Mean Gradient 1 mmHg LVOT VTI 21 cm LVOT Stroke Volume 71 ml LVOT CO 3.7 l/min LVOT CI 1.8 l/min/m2 Pulmonic Valve Name Value Normal RVOT Doppler RVOT Peak Velocity 74 cm/s RVOT Peak Gradient 2 mmHg PV Doppler PV Peak Velocity 79 cm/s PV Peak Gradient 3 mmHg Mitral Valve Name Value Normal MV Diastolic Function MV E Peak Velocity 79 cm/s MV A Peak Velocity 84 cm/s MV E/A 0.9 MV Decel Time (PW) 214 ms Tricuspid Valve Name Value Normal Estimated PAP/RSVP RA Pressure 5 mmHg <=5 Aortic Valve Name Value Normal AV Doppler AV Peak Velocity 132 cm/s AV Peak Gradient 7 mmHg AV Area (Cont Eq Yaw) 2.3 cm2 AV DI (Yaw) 0.70 AV Regurgitation 2D LVOT Area 3.3 cm2 Ventricles Name Value Normal LV Dimensions 2D/MM IVS Diastolic Thickness (2D) 0.9 cm 0.6-1.0 LVID Diastole (2D) 4.4 cm 4.2-5.8 LVIW Diastolic Thickness (2D) 0.9 cm 0.6-1.0 LVID Systole (2D) 2.7 cm 2.5-4.0 LVOT Diameter 2.1 cm LV Mass (2D Cubed) 125.47 g 88.00-224.00 LV Mass Index (2D Cubed) 62 g/m2 49-115 Relative Wall Thickness (2D) 0.39 <=0.42 LV Fractional Shortening/Ejection Fraction 2D/MM LV Fractional Shortening (2D) 39 % 25-43 LV EF (2D Teichholz) 69 % LV Diastolic Volume (4C MOD) 140 ml LV EF (4C MOD) 60 % LV Diastolic Volume (2C MOD) 103 ml LV EF (2C MOD) 56 % LV Diastolic Volume (BP MOD) 122 ml 62-150 LV Diastolic Volume Index (BP MOD) 61 ml/m2 34-74 LV Systolic Volume (BP MOD) 51 ml 21-61 LV Systolic Volume Index (BP MOD) 25 ml/m2 11-31 LV EF (BP MOD) 58 % 52-72 LV Diastolic Length (4C) 8.7 cm LV Systolic Length (4C) 7.2 cm LV Stroke Volume (4C MOD) 84 ml Atria Name Value Normal LA Dimensions LA Volume (4C A-L) 29 ml LA Volume (BP A-L) 38 ml RA Dimensions RA Systolic Major Jackson Length (4C) 4.5 cm 2.1-2.7 RA Area (4C) 16.1 cm2 <=18.0 Report Signatures
== END 2025-02-02 09:13 | disposition home or self-care (01) ==
PROVIDERS: PCP Family Medicine; Visit Provider Nurse Practitioner Family
DX: R06.09 Other forms of dyspnea (principal); I10 Essential (primary) hypertension; E78.2 Mixed hyperlipidemia
CPT/HCPCS: 93306

== ENCOUNTER 2025-04-18 08:09 | Outpatient (CLI) | payer OTHER, SELFPAY ==
--- NOTE | ~2025-04-18 | US_ITS ---
US abdomen complete EXAMINATION: US Abdomen Complete INDICATION: Flank pain. Right lower quadrant pain. PROCEDURE: Realtime High Resolution abdomen ultrasound. COMPARISON: Ultrasound dated 09/25/[address] dated 09/11/2024 FINDINGS: Gallbladder within normal limits. No gallstones, pericholecystic fluid, gallbladder wall thickening or biliary dilatation. Common bile duct measures 4 mm. Liver echotexture is increased, consistent with fatty infiltration. Liver is enlarged measuring 21.6 cm.. Pancreas within normal limits. Pancreatic tail is obscured by bowel gas. Spleen is unremarkeable. Renal echotexture is within normal limits bilaterally without hydronephrosis, contour deforming mass or renal stone. Right kidney measures 10 cm. Left kidney measures 9.9 cm. Visualized aspects of the aorta and IVC are within normal limits. Portal vein is patent. No sonographic Robin's sign indicated by the technologist. IMPRESSION: 1: Hepatomegaly with fatty infiltration of the liver. Reviewed, dictated and finalized at location O.
--- OUTSIDE RECORDS SUMMARY | 2025-04-18 08:14 | XMS_ITS | Clinical Summary ---
Author Organization [facility] [address] [place] [address] [place] [id number] Care Team Providers Care Saturation Diver Name Role Phone Humble Kim MD Primary Care Provider + [phone] Allergies Active Allergy Reactions Criticality Noted Date [...] 1 tablet (81 mg total) by mouth supervisor dyer before breakfast 0 Active Additional Information Patient [...] (05/21/2021): Added automatically from request for surgery [id number] S/P cervical spinal fusion 12/10/2019 Cervical disc disorder with myelopathy of mid-cervical region 09/27/2019 Overview (09/27/2019): Added automatically from request for surgery [id number] History of DVT (deep vein thrombosis) 03/23/2019 Rotator cuff tear arthropathy of left shoulder 0 02/15/2019 Overview (02/15/2019): Added automatically from request for surgery [id number] Carpal tunnel syndrome on left 06/29/2018 Overview (06/29/2018): Added automatically from request for surgery [id number] Cubital tunnel syndrome on left 06/29/2018 Overview (06/29/2018): Added automatically from request for surgery [id number] Arthralgia of shoulder 09/22/2014 Numbness and tingling [...] Osteoarthritis left hip DVT (deep venous thrombosis) PONV (postoperative nausea and vomiting) nausea after [...] on file Legal Sex Male 5: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 PRODUCTION MANAGER Gender Identity Male 06/27/2021 10:46 AM CDT Sexual Orientation Not on file Obstetrics History Last Filed Vital Signs Vital Sign Reading Time Taken Comments Blood Pressure 139/85 07/09/2021 8:04 AM BIOFUELS PRODUCTION MANAGER Pulse 67 07/09/2021 8:00 AM BIOFUELS PRODUCTION MANAGER Temperature 37.3 C (99.1 F) 10/27/2019 11:30 AM BIOFUELS PRODUCTION MANAGER Respiratory Rate 18 07/09/2021 8:00 AM BIOFUELS PRODUCTION MANAGER Oxygen Saturation 95% 07/09/2021 8:00 AM BIOFUELS PRODUCTION MANAGER Inhaled Oxygen Concentration - - Weight 87 kg (191 lb 12.8 oz) 07/09/2021 8:00 AM BIOFUELS PRODUCTION MANAGER Height 177.8 cm (5' 10) 07/09/2021 8:00 AM BIOFUELS PRODUCTION MANAGER Body Mass Index 27.52 07/09/2021 8:00 AM BIOFUELS PRODUCTION MANAGER Plan of Treatment Not on file Medical Devices Implanted Type Area Dairy Hand Device Identifier Shelf Expiration Date Model / Serial / Lot [employer] [id number] 25mm Reverse Shoulder Baseplate Glenoid Trabecular Metal - [id number] Implanted:Qty: 1 on 03/25/2019 by Rodolfo Sapp MD at [facility] Left: Shoulder [employer] [id number] 02/21/2029 [id number] / / [id number] [employer] [id number] 36mm Reverse Shoulder Sphere Glenoid Trabecular Metal - [id number] Implanted:Qty: 1 on 03/25/2019 by Rodolfo Sapp MD at [facility] Left: Shoulder [employer] [id number] 12/22/2028 [id number] / / [id number] [employer] [id number] Ncb Anatomical Shoulder 4.5mm 48mm Inverse Reverse Lock Self Tap - [id number] Implanted:Qty: 1 on 03/25/2019 by Rodolfo Sapp MD at [facility] Left: Shoulder [employer] [id number] 11/23/2023 [id number] / / [id number] [employer] [id number] Ncb Anatomical Shoulder 4.5mm 48mm Inverse Reverse Lock Self Tap - [id number] Implanted:Qty: 1 on 03/25/2019 by Rodolfo Sapp MD at [facility] Left: Shoulder [employer] [id number] 11/23/2023 [id number] / / [id number] [employer] 1624-109ns Steinmann 3/32in 9in 2 Trocar Pin Fixation Nonsterile - [id number] Implanted:Qty: 1 on 03/25/2019 by Rodolfo Sapp MD at [facility] Left: Shoulder [employer] 08/25/2019 [id number] / / [employer] [id number] 14mm 130mm Shoulder Stem Humeral Trabecular Metal Tivanium - [id number] Implanted:Qty: 1 on 03/25/2019 by Rodolfo Sapp MD at [facility] Left: Shoulder [employer] [id number] 01/22/2029 [id number] / / [id number] [employer] [id number] 36mm H+3mm Reverse Retentive Humerus 12d 65d Liner Shoulder - [id number] Implanted:Qty: 1 on 03/25/2019 by Rodolfo Sapp MD at [facility] Left: Shoulder [employer] [id number] 05/24/2021 [id number] / / [id number] Carl[employer] Spine [id number] Aviator 32x17.4x2.5mm Level 2 Automatic Lock System Spring Load - [id number] Implanted:Qty: 1 on 10/26/2019 by Charlie Bernal MD at [facility] N/A: Spine Cervical [employer]ton Spine [id number] / / Laxmi Spine [id number] Aviator 4mm 14mm Variable Angle Self Tap Spine Cervical Anterior - [id number] Implanted:Qty: 6 on 10/26/2019 by Charlie Bernal MD at [facility] N/A: Spine Cervical Carlton Spine [id number] / / Abyrx Os-201 Hemasorb Os-Spa Spatula Wax 2gm Bone Sterile - [id number] Implanted:Qty: 1 on 10/26/2019 by Charlie Bernal MD at [facility] N/A: Spine Cervical Abyrx 05/24/2022 OS-201 / / Musculoskeletal Transplant [id number] 4-30mm Allograft Frozen Kmj18-75ms Wedge Graft Bone - [id number] - [id number] Implanted:Qty: 1 on 10/26/2019 by Charlie Bernal MD at [facility] N/A: Spine Cervical Musculoskeletal Transplant 02/05/2024 [id number] / [id number] / Insurance [employer] OPEN ACCESS [employer] OPEN ACCESS [employer] OPEN ACCESS Advance Directives For more information, please contact: [phone] * Full Code (Latest Code Status on File) Date Activated Date Inactivated Comments 10/26/2019 2:07 PM 10/27/2019 6:33 PM * Full Code Date Activated Date Inactivated Comments 03/25/2019 3:33 PM 03/26/2019 6:43 PM * Full Code Date Activated Date Inactivated Comments 03/25/2019 3:33 PM 03/25/2019 3:33 PM Care Teams Saturation Diver Relationship Specialty Start Date End Date Humble Kim MD PCP - General Family Medicine 06/26/18
== END 2025-04-18 08:10 | disposition home or self-care (01) ==
PROVIDERS: PCP Family Medicine; Visit Provider Physician Assistant Medical
DX: R10.11 Right upper quadrant pain (principal); R16.0 Hepatomegaly, not elsewhere classified; K76.0 Fatty (change of) liver, not elsewhere classified
CPT/HCPCS: 76700

== ENCOUNTER 2025-05-03 07:54 | Outpatient (CLI) | payer OTHER, SELFPAY ==
--- NOTE | ~2025-05-03 | US_ITS ---
EXAMINATION: US retroperitoneal duplex ltd DATE: 05/03/2025 08:36 INDICATION: Hepatomegaly. TECHNIQUE: Multiple grayscale, color Doppler, and pulsed Doppler images of the liver and hepatic vasculature were obtained. COMPARISON: None. FINDINGS: Liver has normal echogenicity and contour, with a smooth surface. No liver lesion identified. No intrahepatic biliary duct dilation suspected. There is normal directional flow and waveforms in the right, middle and left hepatic veins. Portal venous flow was seen in the hepatopetal, normal direction and has normal Doppler waveform in the main, left and right portal veins. Normal directional flow and normal brisk systolic upstrokes at the hepatic artery. IMPRESSION: 1. Normal liver with normal directional flow and Doppler waveforms in the hepatic artery; main, left and right portal veins and left, middle and right hepatic veins. Reviewed, dictated and finalized at location A. IMPRESSION: 1. Normal liver with normal directional flow and Doppler waveforms in the hepa tic artery; main, left and right portal veins and left, middle and right hepati c veins.
--- OUTSIDE RECORDS SUMMARY | 2025-05-03 08:19 | XMS_ITS | Clinical Summary ---
Author Organization [facility] [address] [place] [address] [place] [id number] Care Team Providers Care Renewable Energy Division Manager Name Role Phone Humble Kim MD Primary Care Provider + [phone] Allergies Active Allergy Reactions Criticality Noted Date [...] 1 tablet (81 mg total) by mouth gizzard skin remover before breakfast 0 Active Additional Information Patient [...] (05/21/2021): Added automatically from request for surgery [id number] S/P cervical spinal fusion 12/10/2019 Cervical disc disorder with myelopathy of mid-cervical region 09/27/2019 Overview (09/27/2019): Added automatically from request for surgery [id number] History of DVT (deep vein thrombosis) 03/23/2019 Rotator cuff tear arthropathy of left shoulder 0 02/15/2019 Overview (02/15/2019): Added automatically from request for surgery [id number] Carpal tunnel syndrome on left 06/29/2018 Overview (06/29/2018): Added automatically from request for surgery [id number] Cubital tunnel syndrome on left 06/29/2018 Overview (06/29/2018): Added automatically from request for surgery [id number] Arthralgia of shoulder 09/22/2014 Numbness and tingling [...] on file Legal 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 Gender Identity Male 06/27/2021 10:46 AM CDT Sexual Orientation Not on file Obstetrics History Last Filed Vital Signs Vital Sign Reading Time Taken Comments Blood Pressure 139/85 07/09/2021 8:04 AM FILTER PLANT OPERATOR Pulse 67 07/09/2021 8:00 AM FILTER PLANT OPERATOR Temperature 37.3 C (99.1 F) 10/27/2019 11:30 AM FILTER PLANT OPERATOR Respiratory Rate 18 07/09/2021 8:00 AM FILTER PLANT OPERATOR Oxygen Saturation 95% 07/09/2021 8:00 AM FILTER PLANT OPERATOR Inhaled Oxygen Concentration - - Weight 87 kg (191 lb 12.8 oz) 07/09/2021 8:00 AM FILTER PLANT OPERATOR Height 177.8 cm (5' 10) 07/09/2021 8:00 AM FILTER PLANT OPERATOR Body Mass Index 27.52 07/09/2021 8:00 AM FILTER PLANT OPERATOR Plan of Treatment Not on file Medical Devices Implanted Type Area Fountain Waitress/Waiter Device Identifier Shelf Expiration Date Model / Serial / Lot [employer] [id number] 25mm Reverse Shoulder Baseplate Glenoid Trabecular Metal - [id number] Implanted:Qty: 1 on 03/25/2019 by Rodolfo Sapp MD at [facility] Left: Shoulder [employer] [id number] 02/21/2029 [id number] / / [id number] [employer] [id number] 36mm Reverse Shoulder Sphere Glenoid Trabecular Metal - [id number] Implanted:Qty: 1 on 03/25/2019 by Rodolfo Sapp MD at [facility] Left: Shoulder [employer] [id number] 12/22/2028 [id number] / / [id number] [employer] [id number] Ncb Anatomical Shoulder 4.5mm 48mm Inverse Reverse Lock Self Tap - [id number] Implanted:Qty: 1 on 03/25/2019 by Rodolfo Sapp MD at [facility] Left: Shoulder [employer] [id number] 11/23/2023 [id number] / / [id number] [employer] [id number] Ncb Anatomical Shoulder 4.5mm 48mm Inverse Reverse Lock Self Tap - [id number] Implanted:Qty: 1 on 03/25/2019 by Rodolfo Sapp MD at [facility] Left: Shoulder [employer] [id number] 11/23/2023 [id number] / / [id number] [employer] 1624-109ns Steinmann 3/32in 9in 2 Trocar Pin Fixation Nonsterile - [id number] Implanted:Qty: 1 on 03/25/2019 by Rodolfo Sapp MD at [facility] Left: Shoulder [employer] 08/25/2019 [id number] / / Nav[employer] [id number] 14mm 130mm Shoulder Stem Humeral Trabecular Metal Tivanium - [id number] Implanted:Qty: 1 on 03/25/2019 by Rodolfo Sapp MD at [facility] Left: Shoulder [employer] [id number] 01/22/2029 [id number] / / [id number] Nav[employer] [id number] 36mm H+3mm Reverse Retentive Humerus 12d 65d Liner Shoulder - [id number] Implanted:Qty: 1 on 03/25/2019 by Rodolfo Sapp MD at [facility] Left: Shoulder [employer] [id number] 05/24/2021 [id number] / / [id number] [place] Spine [id number] Aviator 32x17.4x2.5mm Level 2 Automatic Lock System Spring Load - [id number] Implanted:Qty: 1 on 10/26/2019 by Charlie Bernal MD at [facility] N/A: Spine Cervical Laxmi Spine [id number] / / Laxmi Spine [id number] Aviator 4mm 14mm Variable Angle Self Tap Spine Cervical Anterior - [id number] Implanted:Qty: 6 on 10/26/2019 by Charlie Bernal MD at [facility] N/A: Spine Cervical Laxmi Spine [id number] / / Abyrx Os-201 Hemasorb Os-Spa Spatula Wax 2gm Bone Sterile - [id number] Implanted:Qty: 1 on 10/26/2019 by Charlie Bernal MD at [facility] N/A: Spine Cervical Abyrx 05/24/2022 OS-201 / / Musculoskeletal Transplant [id number] 4-30mm Allograft Frozen [id number] Wedge Graft Bone - [id number] - [id number] Implanted:Qty: 1 on 10/26/2019 by Charlie Bernal MD at [facility] N/A: Spine Cervical Musculoskeletal Transplant 02/05/2024 [id number] / [id number] / Insurance [employer] OPEN ACCESS [employer] OPEN ACCESS [employer] OPEN ACCESS Advance Directives For more information, please contact: [phone] * Full Code (Latest Code Status on File) Date Activated Date Inactivated Comments 10/26/2019 2:07 PM 10/27/2019 6:33 PM * Full Code Date Activated Date Inactivated Comments 03/25/2019 3:33 PM 03/26/2019 6:43 PM * Full Code Date Activated Date Inactivated Comments 03/25/2019 3:33 PM 03/25/2019 3:33 PM Care Teams Renewable Energy Division Manager Relationship Specialty Start Date End Date Humble Kim MD PCP - General Family Medicine 06/26/18
== END 2025-05-03 07:55 | disposition home or self-care (01) ==
PROVIDERS: PCP Physician Assistant Medical; Visit Provider Nurse Practitioner
DX: R16.0 Hepatomegaly, not elsewhere classified (principal); K76.0 Fatty (change of) liver, not elsewhere classified
CPT/HCPCS: 93976